=== PATIENT | female | born 1940 | race African-American/Black ===

== ENCOUNTER 2016-10-05 23:04 | Inpatient (IN) | payer MEDICARE ==
[~2016-10-05] VITALS: Ht 165.1 cm; Wt 57.3 kg
[~2016-10-05 23:04] MED LIST: ALLO100T PO; ASPI81TA82 PO; COZA50TA PO; CYAN1000P SQ; FURO1TAB93 PO; LABE100T2 PO; VITA500T83 PO; VITD400 PO; [UNRECOGNIZED DRUG - CODE] SQ
[2016-10-05 23:08] VITALS: PULSE 78; RESP 16; TEMP 98.2; O2SAT 99
[2016-10-05 23:17] VITALS: BP 241/112; PULSE 78; RESP 16; TEMP 98.2; O2SAT 99
--- NOTE | 2016-10-05 23:18 | PD ---
HPI Chief Complaint: Neuro Symptoms/ Deficits Time Seen by Provider: 23:18 Travel History International Travel<30 days: No Contact w/Intl Traveler<30days: No Traveled to known affect area: No History of Present Illness HPI 75-year-old female arrives by EMS. At least 7 hours prior to arrival she developed weakness in the left hand as well as a left facial droop. Evidently the patient had a stroke a year earlier without residual deficit. In the ER the patient denies any pain. EMS reports blood pressure on scene was 220/130 with a blood glucose of 125 and a pulse in the 80s. 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 PFSH Past Medical History Anemia: Yes Arthritis: Yes Blood Disorders: No Heart Rhythm Problems: Yes Cancer: No Cardiovascular Problems: Yes (AORTIC ANEURYSM) Chemotherapy: No Diabetes: No Diminished Hearing: No Endocrine: Yes Gastrointestinal Disorders: Yes (GERD, ESOPAGEAL STRICTURE, CHOLELITHIASIS, ABD. PAIN) GERD: Yes Genitourinary: No Hepatitis: No Hiatal Hernia: Yes Hypertension: Yes Immune Disorder: No Medical other: Yes (ANEMIA,) Musculoskeletal: Yes (ARTHRITIS) Neurologic: No Psychiatric: No Reproductive: No Respiratory: No Immunizations Current: Yes Radiation Therapy: No Thyroid Disease: Yes (NODULAR) Tetanus Vaccination: Unknown Influenza Vaccination: Yes Menopausal: Yes Past Surgical History Abdominal Surgery: No AICD: No Body Medical Devices: NONE Cardiac Surgery: No Ear Surgery: No Endocrine Surgery: No Eye Surgery: No Genitourinary Surgery: No Gynecologic Surgery: Yes (C SECTIION, HYSTERECTOMY) Hysterectomy: Yes Joint Replacement: No Neurologic Surgery: No Oral Surgery: No Pacemaker: No Thoracic Surgery: No Other Surgery: Yes (HYSTERECTOMY 20 YRS AGO) Social History Alcohol Use: No Tobacco Use: No Substance Use: No Allergies-Medications (Allergen,Severity, Reaction): Coded Allergies: Hydrochlorothiazide (Unverified Allergy, Severe, Rash, 10/05/16) Lactose (Unverified Adverse Reaction, Severe, GAS, PAIN, 10/05/16) Reported Meds & Prescriptions Reported Meds & Active Scripts Active Reported Cozaar (Losartan Potassium) 50 Mg Tab 50 Mg PO DAILY Vitamin D-3 (Cholecalciferol) 400 Unit Tab 400 B-12 (Cyanocobalamin) 1,000 Mcg Subl 1,000 Mcg SL DAILY Aspirin 81 Mg Tabdr 81 Mg PO DAILY Vitamin C (Ascorbic Acid) 500 Mg Cap 500 Mg PO Allopurinol 100 Mg Tab 100 Mg PO DAILY Labetalol (Labetalol HCl) 100 Mg Tab 100 Mg PO DAILY Furosemide 40 Mg Tab 40 Mg PO DAILY Procrit Inj (Epoetin Jay Jay) 10,000 Unit/Ml Inj 10,000 Units SQ 3XWEEK Review of Systems Except as stated in HPI: all other systems reviewed are Neg Physical Exam Narrative GENERAL: 75-year-old female pleasant well-nourished well-developed SKIN: Warm and dry. HEAD: Atraumatic. Normocephalic. EYES: Pupils equal and round. No scleral icterus. No injection or drainage. ENT: No nasal bleeding or discharge. Mucous membranes pink and moist. NECK: Trachea midline. No JVD. CARDIOVASCULAR: Regular rate and rhythm. No murmur appreciated. RESPIRATORY: No accessory muscle use. Clear to auscultation. Breath sounds equal bilaterally. GASTROINTESTINAL: Abdomen soft, non-tender, nondistended. Hepatic and splenic margins not palpable. MUSCULOSKELETAL: No obvious deformities. No clubbing. No cyanosis. No edema. NEUROLOGICAL: There is a depression of the nasolabial fold in the left side. There is a pronator drift on the left side. Handgrip on the left side is weaker compared to the right. Hip flexion is equal bilaterally. Speech memory mentation are preserved/normal. PSYCHIATRIC: Appropriate mood and affect; insight and judgment normal. Data Data Last Documented VS Vital Signs Date Time Temp Pulse Resp B/P Pulse Ox O2 Delivery O2 Flow Rate FiO2 10/06/16 00:15 180/71 10/05/16 23:59 84 16 100 Room Air 10/05/16 23:17 98.2 Orders Electrocardiogram (10/05/16 23:19) Prothrombin Time / Inr (Pt) (10/05/16 23:19) Act Partial Throm Time (Ptt) (10/05/16 23:19) Complete Blood Count With Diff (10/05/16 23:19) Basic Metabolic Panel (Bmp) (10/05/16 23:19) Creatine Kinase (Cpk) (10/05/16 23:19) Drug Screen, Random Urine (10/05/16 23:19) Troponin I (10/05/16 23:19) Urinalysis - C+S If Indicated (10/05/16 23:19) Ct Brain W/O Iv Contrast(Rout) (10/05/16 23:19) Chest, Single Ap (10/05/16 23:19) Ecg Monitoring (10/05/16 23:19) Iv Access Insert/Monitor (10/05/16 23:19) Oximetry (10/05/16 23:19) Cath For Specimen (10/05/16 23:19) Blood Glucose (10/05/16 23:19) Sodium Chloride 0.9% Flush (Ns Flush) (10/05/16 23:30) Nicardipine Inj (Cardene Inj) (10/05/16 23:30) CKMB (10/05/16 23:25) CKMB% (10/05/16 23:25) Clopidogrel (Plavix) (10/06/16 00:30) Admit Order (Ed Use Only) (10/06/16 00:30) Consult Neurology (10/06/16 ) Labs Laboratory Tests Test 10/05/16 23:25 Prothrombin Time 12.0 SEC Prothromb Time International 1.1 RATIO Ratio Activated Partial 26.8 SEC Thromboplast Time White Blood Count 8.0 TH/MM3 Red Blood Count 2.95 MIL/MM3 Hemoglobin 8.9 GM/DL Hematocrit 27.4 % Mean Corpuscular Volume 93.0 FL Mean Corpuscular Hemoglobin 30.1 PG Mean Corpuscular Hemoglobin 32.4 % Concent Red Cell Distribution Width 15.3 % Platelet Count 227 TH/MM3 Mean Platelet Volume 8.7 FL Neutrophils (%) (Auto) 67.4 % Lymphocytes (%) (Auto) 22.1 % Monocytes (%) (Auto) 7.1 % Eosinophils (%) (Auto) 2.5 % Basophils (%) (Auto) 0.9 % Neutrophils # (Auto) 5.4 TH/MM3 Lymphocytes # (Auto) 1.8 TH/MM3 Monocytes # (Auto) 0.6 TH/MM3 Eosinophils # (Auto) 0.2 TH/MM3 Basophils # (Auto) 0.1 TH/MM3 CBC Comment DIFF FINAL Differential Comment Sodium Level 140 MEQ/L Potassium Level 4.2 MEQ/L Chloride Level 113 MEQ/L Carbon Dioxide Level 11.6 MEQ/L Anion Gap 15 MEQ/L Blood Urea Nitrogen 117 MG/DL Creatinine 5.93 MG/DL Estimat Glomerular Filtration 8 ML/MIN Rate Random Glucose 134 MG/DL Calcium Level 8.5 MG/DL Total Creatine Kinase 256 U/L Creatine Kinase MB 5.8 NG/ML Creatine Kinase MB % 2.3 % Troponin I 0.04 NG/ML MDM Medical Decision Making Medical Screen Exam Complete: Yes Emergency Medical Condition: Yes Medical Record Reviewed: Yes Differential Diagnosis Hypertensive encephalopathy, stroke, TIA, electrolyte imbalance, spinal cord injury, Plummer's palsy Narrative Course CBC & BMP Diagram 10/05/16 23:25 EKG reveals a sinus rhythm with ventricular hypertrophy QT interval corrected is 461 rate is 76 Last [address] 10/05/169 Signed Impressions: Service Date/Time: Wednesday, October 05, 2016 23:37 - CONCLUSION: 1. No evidence of acute intracranial pathology. Chronic ischemic changes as above. old right occipital lobe infarct Delta Watt MD Chest X-Ray 10/05/162318 Signed Impressions: Service Date/Time: Wednesday, October 05, 2016 23:33 - CONCLUSION: 1. Delta Watt MD Chest x-ray shows cardiomegaly with no dense consolidation or sign of CHF The patient will be admitted for workup of what appears to be a stroke. Patient has been somewhat objectionable to our interventions here including Edward ramos. D/w Dr Mckeon for [facility]. Critical Care Narrative Aggregate critical care time was 45 minutes. Time to perform other separately billable procedures was not included in the critical care time. My time did not include minutes spent treating any other patients simultaneously or on activities that did not directly contribute to the patient's treatment. The services I provided to this patient were to treat and/or prevent clinically significant deterioration that could result in: intracranial hemorrhage, permanent disability I provided critical care services requiring my management, as noted below: Chart data review, documentation time, medication orders and management, vital sign assessments/reviewing monitor data, ordering and reviewing lab tests, ordering and interpreting/reviewing x-rays and diagnostic studies, care of the patient and discussion of the patient with the admitting physicians. Diagnosis Primary Impression: Hypertensive encephalopathy syndrome Additional Impressions: Stroke Qualified Code: I63.9 - Cerebrovascular accident (CVA), unspecified mechanism Renal failure (ARF), acute on chronic Admitting Information Admitting Physician Requests: Admit Brent Cuevas MD Oct 05, 2016 23:18
[2016-10-05] MEDS ORDERED: SODIUM CHLORIDE 0.9% FLUSH 5 ML FLUSH IVF PRN (23:30)
[2016-10-05 23:34] VITALS: RESP 16; O2SAT 99
--- NOTE | 2016-10-05 23:38 | RADRPT ---
EXAM DATE/TIME: 10/05/2016 23:33 [facility] COMPARISON: CHEST SINGLE AP, March 08, 2015, 3:37. INDICATIONS : Shortness of breath. MEDICAL HISTORY : None. SURGICAL HISTORY : None. ENCOUNTER: Initial ACUITY: 1 day PAIN SCORE: 0/10 LOCATION: Bilateral chest FINDINGS: The cardiac silhouette is enlarged in transverse diameter. The lungs are free of acute parenchymal op acity. No effusions are identified. There is prominence of the aortic knob is with calcification emmie acteristic of atherosclerotic vascular disease. CONCLUSION: 1. Delta Watt MD on October 05, 2016 at 23:37 Board Certified Radiologist. This report was verified electronically.
[2016-10-05 23:42] LABS: AUTOMATED NEUTROPHIL # 5.4 TH/MM3 (1.8-7.7); BASOPHIL # 0.1 TH/MM3 (0-0.2); BASOPHIL % 0.9 % (0.0-2.0); EOSINOPHIL # 0.2 TH/MM3 (0-0.4); EOSINOPHIL % 2.5 % (0.0-4.0); HEMATOCRIT 27.4 % (35.0-46.0); HEMO FLAGS DIFF FINAL; LYMPH % 22.1 % (9.0-44.0); LYMPHOCYTE # 1.8 TH/MM3 (1.0-4.8); MEAN CORPUSCULAR HEMOGLOBIN 30.1 PG (27.0-34.0); MEAN CORPUSCULAR HGB CONC 32.4 % (32.0-36.0); MONO % 7.1 % (0.0-8.0); NEUT % 67.4 % (16.0-70.0); PLATELET COUNT 227 TH/MM3 (150-450); RED BLOOD COUNT 2.95 MIL/MM3 (4.00-5.30); RED CELL DISTRIBUTION WIDTH 15.3 % (11.6-17.2)
[2016-10-05] MEDS: niCARdipine INJ 25 MG in SODIUM CHLOR 0.9% 250 ML INJ 250 ML IV SCH (23:45)
[2016-10-05 23:50] LABS: APTT (PATIENT) 26.8 SEC (24.3-30.1); INTERNATIONAL NORMALIZED RATIO 1.1 RATIO
[2016-10-05 23:59] VITALS: BP 215/144; PULSE 84; RESP 16; O2SAT 100
[2016-10-05 23:59] LABS: BICARBONATE 11.6 MEQ/L (21.0-32.0); POTASSIUM 4.2 MEQ/L (3.5-5.1)
[2016-10-06] VITALS (24 sets, daily range): BP systolic 148–212; BP diastolic 65–103; PULSE 71–87; RESP 16–30; TEMP 98.3–98.5; O2SAT 96–100
--- NOTE | 2016-10-06 00:10 | RADRPT ---
EXAM DATE/TIME: 10/05/2016 23:37 [facility] COMPARISON: No previous studies available for comparison. INDICATIONS : Left facial droop, left upper extremity weakness and slurred spech x 7 hrs RADIATION DOSE: 45.50 CTDIvol (mGy) MEDICAL HISTORY : Hypertension. Aneurysm, abdominal. Cardiovascular disease SURGICAL HISTORY : None. ENCOUNTER: Initial ACUITY: 1 day PAIN SCALE: 0/10 LOCATION: Bilateral cranial TECHNIQUE: Multiple contiguous axial images were obtained of the head. Using automated exposure control and adj ustment of the mA and/or kV according to patient size, radiation dose was kept as low as reasonably a chievable to obtain optimal diagnostic quality images. FINDINGS: Noncontrast axial head CT demonstrates the ventricles to be normal in size and configuration with a n ormal sulcal pattern. No acute intracranial hemorrhage, acute cortical infarction, mass or midline sh ift is seen. There is old right occipital infarct with ex vacuo dilatation of the occipital horn. Mac ro CT scan severe. Posterior fossa structures are unremarkable. Bone windows are unremarkable. CONCLUSION: 1. No evidence of acute intracranial pathology. Chronic ischemic changes as above. old right occipit al lobe infarct Delta Watt MD on October 06, 2016 at 0:07 Board Certified Radiologist. This report was verified electronically.
[2016-10-06 00:15] LABS: CKMB 5.8 NG/ML (0.5-3.6)
[2016-10-06] MEDS ORDERED: CLOPIDOGREL 75 MG TAB PO ONE (00:30)
[2016-10-06] MEDS ORDERED: PROC10003 SQ (01:09)
[2016-10-06] MEDS ORDERED: FURO40TA PO (01:09)
[2016-10-06] MEDS ORDERED: COZA50TA PO (01:09)
[2016-10-06] MEDS ORDERED: CYAN100025 SL (01:09)
[2016-10-06] MEDS ORDERED: LABE100T2 PO (01:09)
[2016-10-06] MEDS ORDERED: ASPI1TAB69 PO (01:09)
[2016-10-06] MEDS ORDERED: ASCO500C PO (01:09)
[2016-10-06] MEDS ORDERED: VITA400T (01:09)
[2016-10-06] MEDS ORDERED: ALLO100T PO (01:09)
[2016-10-06] MEDS: niCARdipine INJ 25 MG in SODIUM CHLOR 0.9% 250 ML INJ 250 ML IV SCH (07:58)
--- NOTE | 2016-10-06 08:39 | PD.CONS ---
History of Present Illness Service Neurology Consult Requested By er Reason for Consult stroke Primary Care Physician Florentin Mao Jr, MD History of Present Illness 75 year old female admitted for possible new stroke. hx of previous stroke. chronic uncontrolled bp and ckd. 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 out of tpa window. on aspirin. denies any headache, poor hx. bp 241/[address] brain old rt occipital stroke Review of Systems ROS Limitations: as above and admit hp Past Family Social History Allergies: Coded Allergies: Hydrochlorothiazide (Unverified Allergy, Severe, Rash, 03/07/15) Lactose (Unverified Adverse Reaction, Severe, GAS, PAIN, 03/07/15) Past Medical History Hypertension poorly controlled Chronic kidney disease creatinine was 2.4 in 2014 Arthritis Atherosclerotic disease of the aorta Past Surgical History Hysterectomy Reported Medications Flonase (Fluticasone Propionate) 0.05 % Naspr 1 Spr NA DAILY PRN Labetalol Hcl (Labetalol HCl) 200 Mg Tab 200 Mg PO DAILY Losartan Potassium 50 MG (Losartan Potassium) 50 Mg Tab 50 Mg PO BID Baby aspirin Active Ordered Medications Reviewed Family History Noncontributory Social History Did not smoke or use alcohol Review of Systems All other ROS: ROS reviewed as documented in chart Past Family Social History Allergies: Coded Allergies: Hydrochlorothiazide (Unverified Allergy, Severe, Rash, 10/05/16) Lactose (Unverified Adverse Reaction, Severe, GAS, PAIN, 10/05/16) Active Ordered Medications Current Medications Medications (Trade) Dose Ordered Sig/Khanh Route Start Time Stop Time Status Last Admin IV Flush 2 ml 2 ml UNSCH PRN IVF 10/05/16 23:30 (Cardene Inj/NS 250 ml Inj) 260 ml @ 0 mls/hr TITRATE IV 10/05/16 23:30 10/06/16 07:58 (Aspirin Chew) 81 mg DAILY PO 10/06/16 09:00 (Plavix) 75 mg DAILY PO 10/06/16 09:00 Exam I&O / VS Vital Signs Date Time Temp Pulse Resp B/P Pulse Ox O2 Delivery O2 Flow Rate FiO2 10/06/16 08:01 78 16 204/87 100 Room Air 10/06/16 07:45 73 16 212/97 100 Room Air 10/06/16 06:55 79 148/91 10/06/16 06:10 79 175/84 2/14/17 03:58 86 16 153/80 98 Room Air 10/06/16 03:30 182/80 10/06/16 03:02 82 16 158/65 98 Room Air 10/06/16 02:54 86 16 170/78 98 Room Air 10/06/16 02:35 188/78 10/06/16 02:00 198/88 10/06/16 01:53 167/90 10/06/16 01:39 85 16 185/73 99 Room Air 10/06/16 01:28 87 16 201/103 99 Room Air 10/06/16 00:15 180/71 10/06/16 00:10 190/88 10/05/16 23:59 84 16 215/144 100 Room Air 10/05/16 23:34 16 99 Room Air 10/05/16 23:17 98.2 78 16 241/112 99 Room Air 10/05/16 23:13 78 16 99 Room Air 10/05/16 23:08 98.2 78 16 99 General: Alert and Oriented, No acute distress Eye: EOMI Respiratory: Non-labored respirations Cardiology: Normal rate Neurologic: Alert, Oriented Psychiatric: Cooperative Exam Comments ox 2-3. follows, pcp: correct. reduced left vff, left lower facial weakness. no drift but reduced ffm in left hand. able to raise all 4 ext to gravity for >5 sec, gait not assessed 2/2 fall risk; reduced pin in left distal hand Review/Management Diagnosis/Plan: (1) Acute ischemic right MCA stroke Plan: probable new rt hemispheric lacunar infarct 2/2 severe, chronic htn vs htn encephalopathy related recs mri/mra brain/carotid/echo plavix p.t. lipids tele f/u exam (2) Chronic ischemic right KILNMAN stroke Plan: old rt occipital (3) Uncontrolled hypertension Plan: keep <200/100; further titration after imaging reviewed ok to restart bp meds (4) Chronic kidney disease (CKD) Problem Qualifiers (1) Chronic kidney disease (CKD): Qualified Code: N18.9 - Chronic kidney disease (CKD), unspecified stage Puneet Zepeda MD Oct 06, 2016 08:39
[2016-10-06] MEDS: CLOPIDOGREL 75 MG TAB PO SCH (09:00)
--- NOTE | 2016-10-06 09:34 | RADRPT ---
EXAM DATE/TIME: 10/06/2016 07:56 [facility] COMPARISON: No previous studies available for comparison. INDICATIONS : Cerebrovascular accident. MEDICAL HISTORY : Hypertension. Gastroesophageal reflux disease. Stroke. Heart rhythm problems. Aortic aneurysm. E sophogeal stricuture. Cholelithiasis. SURGICAL HISTORY : section. Hysterectomy. ENCOUNTER: Initial ACUITY: 1 day PAIN SCORE: 1/10 LOCATION: Bilateral neck PEAK SYSTOLIC VELOCITIES (cm/sec): ICA/CCA RATIO: Right: 1.6 Left: 1.6 ICA: Right: 61 Left: 83 CCA: Right: 39 Left: 52 ECA: Right: 77 Left: 52 VERTEBRAL: Right: 49 antegrade Left: 70 antegrade Elevated flow velocities and ICA/CCA ratios have been found to correlate with increased degrees of vessel stenosis, calculated as percentage of diameter relative to a normal segment of distal ICA/CCA FINDINGS: RIGHT CAROTID: There is calcified plaque in the distal common carotid artery and bulb which extends into the interna l and external carotid arteries. The waveforms are within normal limits. LEFT CAROTID: There is calcified plaque in the distal common carotid artery and bulb which extends into the interna l and external carotid arteries. The waveforms are within normal limits. VERTEBRAL ARTERIES: Antegrade flow is seen in both vertebral arteries. MISCELLANEOUS: None. CONCLUSION: 1. Mild to moderate bilateral calcific plaquing with less than 50% diameter stenosis by velocity crit eria in both internal carotid arteries. 2. Antegrade flow in both vertebral arteries. Binh Jones MD on October 06, 2016 at 9:32 Board Certified Radiologist. This report was verified electronically.
[2016-10-06] MEDS: ASPIRIN 81 MG CHEW TAB PO SCH ×2 (10:37→13:31)
[2016-10-06] MEDS: HEPARIN SODIUM - SQ 10,000 UNITS/ML VIAL SQ SCH ×2 (10:38→22:08)
--- NOTE | 2016-10-06 11:22 | EKG ---
Date Performed: 10/05/2016 Time Performed: 23:15:38 PTAGE: 75 years EKG: Sinus rhythm LEFT VENTRICULAR HYPERTROPHY NONSPECIFIC ST-T WAVE CHANGES NO MAJOR CHANGE SUSPECTED FROM THE PRIOR TRACING ABNORMAL ECG PREVIOUS TRACING : 03/07/2015 10.28 DOCTOR: Alvaro Gant Interpretating Date/Time 10/06/2016 11:21:51
--- NOTE | 2016-10-06 12:16 | HHI.HP ---
HPI Service [facility] Hospitalists Primary Care Physician Florentin Mao Jr, MD Admission Diagnosis CVA, Acute on CRI, Hypertension Chief Complaint: Left hand weakness and left facial droop Travel History International Travel<30 Days: No Contact w/Intl Traveler <30 Da: No Traveled to Known Affected Are: No History of Present Illness Mrs. Gallagher is a pleasant 75 y/o AAF with uncontrolled HTN, CKD, stage 5, anemia of chronic disease on Procrit injections, and previous right MCA stroke in 02/2016. Pt arrived to the ED by EMS on 10/05/16 with complaints of left hand weakness and left facial droop which reportedly was first noted at least 7 hours prior to arrival. EMS reported her blood pressure on scene was 220/130 with a blood glucose of 125 and a pulse in the 80s. 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 Head CT did not revealed any evidence of acute intracranial pathology, only chronic ischemic changes and old right occipital lobe infarct. Pt has been evaluated by Neurology. MRI/MRA are pending. Carotid US noted mild to moderate bilateral calcific plaquing with less than 50% diameter stenosis by velocity criteria in both internal carotid arteries and antegrade flow in both vertebral arteries. Review of Systems Constitutional: DENIES: Fever, Chills Eyes: DENIES: Vision loss Ears, nose, mouth, throat: DENIES: Hearing loss Respiratory: DENIES: Cough, Shortness of breath Cardiovascular: DENIES: Chest pain, Palpitations, Lower Extremity Edema Gastrointestinal: DENIES: Abdominal pain, Nausea, Vomiting Genitourinary: DENIES: Urinary incontinence, Dysuria Musculoskeletal: DENIES: Back pain, Neck pain Integumentary: DENIES: Rash Hematologic/lymphatic: DENIES: Bruising Neurologic: COMPLAINS OF: Localized weakness, DENIES: Headache, Paresthesias, Poor Balance Psychiatric: DENIES: Confusion Past Family Social History Past Medical History Uncontrolled Hypertension Might sided MCA stroke in 02/2016 CKD, stage 5/ESRD creatinine was 5.27 in 07/2016, refused dialysis in the past, follows at [facility] with Dr. Luis Alfredo Ellis Anemia of chronic disease Hyperlipidemia Arthritis CAD/Hx of MS Pulmonary HTN 2D echo (03/15/16) - Mild LVH - Estimated EF 55-60% - LA is dilated - Mild mitral regurgitation - Mild to moderate tricuspid regurgitation - RSVP 47mmHg Past Surgical History Hysterectomy Thyroid biopsy in 2009 which was negative. Reported Medications -Aspirin 81 Mg PO DAILY -Furosemide 40 Mg PO DAILY -Procrit Inj 10,000 Units SQ 3XWEEK --Labetalol 100 Mg PO BID --Cozaar 100 Mg PO DAILY --Plavix 75mg PO DAILY --Atorvastatin 20mg QHS ?Norvasc 10mg PO DAILY ?Protonix 40mg PO DAILY ?Chlorthalidone 50mg PO DAILY Vitamin D-3 400 Unit Tab po DAILY B-12 1,000 Mcg SL DAILY Vitamin C 500 Mg PO DAILY Allergies: Coded Allergies: Hydrochlorothiazide (Unverified Allergy, Severe, Rash, 10/05/16) Lactose (Unverified Adverse Reaction, Severe, GAS, PAIN, 10/05/16) Family History Family hx of ESRD, HTN, and DM Social History Denies any alcohol, tobacco or illicit drug use Physical Exam Vital Signs Vital Signs Date Time Temp Pulse Resp B/P Pulse Ox O2 Delivery O2 Flow Rate FiO2 10/06/16 10:30 75 18 165/72 99 Room Air 10/06/16 09:16 71 18 167/79 99 10/06/16 08:01 78 16 204/87 100 Room Air 10/06/16 07:45 73 16 212/97 100 Room Air 10/06/16 06:55 79 148/91 10/06/16 06:10 79 175/84 10/06/16 03:58 86 16 153/80 98 Room Air 10/06/16 03:30 182/80 10/06/16 03:02 82 16 158/65 98 Room Air 10/06/16 02:54 86 16 170/78 98 Room Air 10/06/16 02:35 188/78 10/06/16 02:00 198/88 10/06/16 01:53 167/90 10/06/16 01:39 85 16 185/73 99 Room Air 10/06/16 01:28 87 16 201/103 99 Room Air 10/06/16 00:15 180/71 10/06/16 00:10 190/88 10/05/16 23:59 84 16 215/144 100 Room Air 10/05/16 23:34 16 99 Room Air 10/05/16 23:17 98.2 78 16 241/112 99 Room Air 10/05/16 23:13 78 16 99 Room Air 10/05/16 23:08 98.2 78 16 99 Physical Exam GENERAL: This is a well-nourished, well-developed patient, in no apparent distress. HEENT: Atraumatic. Normocephalic. No temporal or scalp tenderness. No scleral icterus. Airway patent. NECK: Trachea midline, supple, nontender. CARDIO: Regular. RESP: CTA bilaterally. No wheezes, rales, or rhonchi. ABD: +BS, soft, non-tender, nondistended. EXT: Extremities without clubbing, cyanosis, or edema. NEURO: Awake and alert. Left lower facial weakness. Normal speech. Laboratory Laboratory Tests Test 10/05/16 23:25 Prothrombin Time 12.0 Prothromb Time International 1.1 Ratio Activated Partial 26.8 Thromboplast Time White Blood Count 8.0 Red Blood Count 2.95 Hemoglobin 8.9 Hematocrit 27.4 Mean Corpuscular Volume 93.0 Mean Corpuscular Hemoglobin 30.1 Mean Corpuscular Hemoglobin 32.4 Concent Red Cell Distribution Width 15.3 Platelet Count 227 Mean Platelet Volume 8.7 Neutrophils (%) (Auto) 67.4 Lymphocytes (%) (Auto) 22.1 Monocytes (%) (Auto) 7.1 Eosinophils (%) (Auto) 2.5 Basophils (%) (Auto) 0.9 Neutrophils # (Auto) 5.4 Lymphocytes # (Auto) 1.8 Monocytes # (Auto) 0.6 Eosinophils # (Auto) 0.2 Basophils # (Auto) 0.1 CBC Comment DIFF FINAL Differential Comment Sodium Level 140 Potassium Level 4.2 Chloride Level 113 Carbon Dioxide Level 11.6 Anion Gap 15 Blood Urea Nitrogen 117 Creatinine 5.93 Estimat Glomerular Filtration 8 Rate Random Glucose 134 Calcium Level 8.5 Total Creatine Kinase 256 Creatine Kinase MB 5.8 Creatine Kinase MB % 2.3 Troponin I 0.04 Result Diagram: 10/05/16232410/05/162324 Imaging Last Impressions Carotid Artery Ultrasound 10/06/16 0900 Signed Impressions: Service Date/Time: Thursday, October 06, 2016 07:56 - CONCLUSION: 1. Mild to moderate bilateral calcific plaquing with less than 50%% diameter stenosis by velocity criteria in both internal carotid arteries. 2. Antegrade flow in both vertebral arteries. Binh Jones MD Head Magnetic Resonance Angiography 2/14/17 0000 Signed Impressions: Service Date/Time: Thursday, October 06, 2016 12:07 - CONCLUSION: No acute [place] vascular findings. Ming Landaverde MD Brain MRI 10/06/16 0000 Signed Impressions: Service Date/Time: Thursday, October 06, 2016 12:07 - CONCLUSION: 1. There is some patchy infarct seen in the postcentral gyral region on the right. This would be consistent with acute right MCA infarct. 2. There is old infarct involving the posterior watershed distribution on the right. 3. Advanced microvascular ischemic demyelinative change. Brent Tapia MD Head CT 10/05/162318 Signed Impressions: Service Date/Time: Wednesday, October 05, 2016 23:37 - CONCLUSION: 1. No evidence of acute intracranial pathology. Chronic ischemic changes as above. old right occipital lobe infarct Delta Watt MD Chest X-Ray 10/05/162318 Signed Impressions: Service Date/Time: Wednesday, October 05, 2016 23:33 - CONCLUSION: 1. Delta Watt MD Septic Shock Reassessment Heart: Regular rate and rhythm Lungs: Clear Skin: Warm Peripheral Pulses: Bounding Right Radial Bounding Left Radial Bounding Right Popliteal Bounding Left Popliteal Bounding Right Dorsalis Pedis Bounding Left Dorsalis Pedis Bounding Right Posterior Tibial Bounding Left Posterior Tibial Capillary Refill: <2 seconds Assessment and Plan Problem List: (1) Acute ischemic right MCA stroke Status: Acute Plan: - Pt was admitted to [facility] on 10/05/16 with complaints of left hand weakness and left facial droop which reportedly was first noted at least 7 hours prior to arrival. - EMS reported her blood pressure on scene was 220/130 with a blood glucose of 125 and a pulse in the 80s. 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 - Head CT (10/05) --> No evidence of acute intracranial pathology, only chronic ischemic changes and old right occipital lobe infarct. Pt has been evaluated by Neurology. - Carotid US (10/06) --> Mild to moderate bilateral calcific plaquing with less than 50% diameter stenosis by velocity criteria in both internal carotid arteries and antegrade flow in both vertebral arteries. - MRA Brain (10/06) --> No acute COW vascular findings. - Brain MRI (10/06) --> There is some patchy infarct seen in the postcentral gyral region on the right. This would be consistent with acute right MCA infarct. There is old infarct involving the posterior watershed distribution on the right. - 2D echo is pending. 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 - Outpt labs reviewed and pts renal function has steadily been in decline, her last BMP in 07/2016 noted Cr 5.27, BUN 80, GFR 8 - Consult Nephrology (4) Anemia, chronic renal failure Status: Chronic Plan: - In review of outpt records pts Hgb has been in the 8's more recently - No active bleeding. - Pt is on Procrit as an otupt. Assessment and Plan Patient examined. Assessment and plan formulated with Joann Venegas PA-C. I agree with the above. Physician Certification 2 Midnight Certification Type: Admission for Inpatient Services Order for Inpatient Services The services are ordered in accordance with Medicare regulations or non- Medicare payer requirements, as applicable. In the case of services not specified as inpatient-only, they are appropriately provided as inpatient services in accordance with the 2-midnight benchmark. Estimated LOS (days): 3 3 days is the estimated time the patient will need to remain in the hospital, assuming treatment plan goals are met and no additional complications. Post-Hospital Plan: Not yet determined Problem Qualifiers (1) Anemia, chronic renal failure: Qualified Code: N18.5 - Anemia, chronic renal failure, stage 5 Joann Venegas Oct 06, 2016 12:16 Gerhard Colon DO Oct 11, 2016 06:59
--- NOTE | 2016-10-06 12:53 | RADRPT ---
EXAM DATE/TIME: 10/06/2016 12:07 [facility] COMPARISON: MRI BRAIN W/O CONTRAST, October 06, 2016, 12:07. INDICATIONS : Left sided weakness. CVA. MEDICAL HISTORY : Gastroesophageal reflux disease. Aneurysm, abdominal. Arthritis. SURGICAL HISTORY : Hysterectomy. Abdominal aortic aneurysm repair. section. ENCOUNTER: Subsequent ACUITY: 1 day PAIN SCORE: 0/10 LOCATION: head. Please note a normal MRA of the brain does not entirely exclude the possibility of a small aneurysm, nor the possibility of distal intracranial vessel disease. TECHNIQUE: 3D time of flight MRA was performed. Source images, multiplanar STS MIP, and 3D volume MIP reconstru ctions were reviewed. FINDINGS: There is diminished relative flow-related enhancement and parenchymal branches of the right middle ce rebral artery. No evidence of proximal occlusion or stenosis. Contralateral left MCA vessels are unre markable. The A1 segment of right anterior cerebral artery is not seen and the A2 is azygous. The pos terior circulation is intact and unremarkable. There is no evidence of aneurysm or vascular malformat ion. CONCLUSION: No acute [place] vascular findings. Ming Landaverde MD on October 06, 2016 at 12:49 Board Certified Radiologist. This report was verified electronically.
[2016-10-06] MEDS ORDERED: niCARdipine INJ 25 MG in SODIUM CHLOR 0.9% 250 ML INJ 250 ML IV SCH (13:00)
--- NOTE | 2016-10-06 13:27 | RADRPT ---
EXAM DATE/TIME: 10/06/2016 12:07 [facility] COMPARISON: CT BRAIN W/O CONTRAST, October 05, 2016, 23:37. INDICATIONS : Left sided weakness. CVA. MEDICAL HISTORY : Gastroesophageal reflux disease. Aneurysm, abdominal. Arthritis. SURGICAL HISTORY : Hysterectomy. Abdominal aortic aneurysm repair. section. ENCOUNTER: Subsequent ACUITY: 1 day PAIN SCORE: 0/10 LOCATION: head. TECHNIQUE: Multiplanar, multisequence MRI of the brain was performed without contrast. FINDINGS: The diffusion restriction images demonstrate a subacute, old area of infarct involving the watershed distribution between the right posterior parietal and occipital cortex. There are however some puncta te areas of restricted diffusion signal seen in the white matter of the centrum semiovale and along t he postcentral gyrus on the right. These would be to system with acute areas of right MCA infarct. No findings to indicate acute intracranial hemorrhage are seen. The inversion recovery images demonstrate extensive T2 signal within the white matter consistent with moderate/advanced microvascular ischemic demyelinative change. No abnormal extra-axial fluid collections are seen. There is some mild colpocephalic dilation of the posterior horn of right lateral ventricle the ventricles are otherwise normal in appearance. No mass lesion is identified. The appearance of the posterior fossa is unremarkable. CONCLUSION: 1. There is some patchy infarct seen in the postcentral gyral region on the right. This would be cons istent with acute right MCA infarct. 2. There is old infarct involving the posterior watershed distribution on the right. 3. Advanced microvascular ischemic demyelinative change. Brent Tapia MD on October 06, 2016 at 13:23 Board Certified Radiologist. This report was verified electronically.
[2016-10-06] MEDS ORDERED: PILL SPLITTER OTHER PRN (15:00)
[2016-10-06] MEDS: LABETALOL HCL 100 MG TAB PO SCH ×2 (15:34→22:08)
--- NOTE | 2016-10-06 17:04 | EC ---
Study Study Date:10/06/2016 STUDY CONCLUSIONS SUMMARY - Left ventricle: The cavity size was normal. Wall thickness was increased in a pattern of mild LVH. There was concentric hypertrophy. Systolic function was normal. The estimated ejection fraction was in the range of 55% to 60%. Wall motion was normal; there were no regional wall motion abnormalities. Doppler parameters are consistent with abnormal left ventricular relaxation (grade 1 diastolic dysfunction). - Aortic valve: Trace regurgitation. - Mitral valve: Mildly calcified annulus. If LV function is below 40, please consider prescribing an ACEI or ARB or document rationale for non-use. PROCEDURE DATA STUDY STATUS: Elective. Procedure: Transthoracic echocardiography. Image quality was good. Scanning was performed from the parasternal, apical, and subcostal acoustic windows. Study completion: The patient tolerated the procedure well. Transthoracic echocardiography. M-mode, complete 2D, complete spectral Doppler, and color Doppler. Patient status: Inpatient. CARDIAC ANATOMY LEFT VENTRICLE: The cavity size was normal. Wall thickness was increased in a pattern of mild LVH. There was concentric hypertrophy. Systolic function was normal. The estimated ejection fraction was in the range of 55% to 60%. Wall motion was normal; there were no regional wall motion abnormalities. Doppler parameters are consistent with abnormal left ventricular relaxation (grade 1 diastolic dysfunction). AORTIC VALVE: Trileaflet; moderately thickened leaflets. Doppler: There was no stenosis. Trace regurgitation. Mean gradient: 6mm Hg (S). Peak gradient: 14mm Hg (S). MITRAL VALVE: Mildly calcified annulus. Doppler: There was no evidence for stenosis. Trace regurgitation. Mean gradient: 3mm Hg (D). Peak gradient: 10mm Hg (D). LEFT ATRIUM: The atrium was at the upper limits of normal in size. RIGHT VENTRICLE: The cavity size was normal. PULMONIC VALVE: Not well visualized. Doppler: There was no evidence for stenosis. No significant regurgitation. TRICUSPID VALVE: The valve appears to be grossly normal. Doppler: There was no evidence for stenosis. Trace to mild regurgitation. PERICARDIUM: There was no pericardial effusion. BASIC MEASUREMENTS ADULT Normal Left ventricle LV internal dimension, ED, chordal level, *41.4 mm 43-52 PLAX LV internal dimension, ES, chordal level, 32 mm 23-38 PLAX Fractional shortening, chordal level, PLAX *23 % >29 LV posterior wall thickness, ED 7.45 mm IVS/LVPW ratio, ED 1.27 <1.3 Ventricular septum Septal thickness, ED 9.47 mm Aortic valve Leaflet separation 16 mm 15-26 Left atrium Anterior-posterior dimension 39 mm Right ventricle RV internal dimension, ED, PLAX 19.3 mm 19-38 BASIC MEASUREMENTS ADULT Normal Aortic valve Leaflet separation 16 mm 15-26 Aorta Root diameter, ED 30 mm 20-37 DOPPLER MEASUREMENTS ADULT Normal Main pulmonary artery Pressure, S 16 mm Hg =30 Aortic valve Peak velocity, S 188 cm/s Mean velocity, S 109 cm/s VTI, S 43.5 cm Mean gradient, S 6 mm Hg Peak gradient, S 14 mm Hg Mitral valve Peak E-wave velocity 85.7 cm/s Peak A-wave velocity 157 cm/s Mean velocity, D 74.7 cm/s Mean gradient, D 3 mm Hg Peak gradient, D 10 mm Hg Peak E/A ratio 0.5 Maximal regurgitant velocity 456 cm/s Tricuspid valve Regurgitant peak velocity 169 cm/s Peak RV-RA gradient, S 11 mm Hg Maximal regurgitant velocity 169 cm/s Systemic veins Estimated CVP 5 mm Hg Right ventricle RV pressure, S 16 mm Hg <30 LEGEND: Mean values are shown as u=mean value. Asterisk (*) parson values outside specified normal range. Prepared and signed by Benjamin Cuevas [id number]
[2016-10-06] MEDS ORDERED: hydrALAZINE HCL 20 MG/ML VIAL ONE (18:25)
[2016-10-06] MEDS ORDERED: cloNIDine HCL 0.2 MG TAB PO PRN (18:45)
[2016-10-06] MEDS ORDERED: CHLORHEXIDINE GLUCONATE 2 % 1 PACK (2 CLOTHS)(extra cloths) TOP PRN (18:45)
[2016-10-06 21:51] LABS: HEMOGLOBIN A1a 1.4 %; HEMOGLOBIN A1b 0.9 %; HEMOGLOBIN Ao 80.2 %; HEMOGLOBIN LA1C 3.1 %; HEMOGLOBIN P3 7.9 %
[2016-10-06 22:25] LABS: HDL CHOLESTEROL 56.5 MG/DL (40.0-60.0); LDL CHOLESTEROL 137 MG/DL (0-99)
[2016-10-07] VITALS (13 sets, daily range): BP systolic 142–200; BP diastolic 67–95; PULSE 68–104; RESP 15–20; TEMP 97.4–98.6; O2SAT 100
[2016-10-07] MEDS: CHLORHEXIDINE GLUCONATE 2 % 1 PACK (2 CLOTHS)(taper/protocol) TOP SCH ×2 (04:00→20:40)
[2016-10-07] MEDS: HEPARIN SODIUM - SQ 10,000 UNITS/ML VIAL SQ SCH ×2 (09:00→20:40)
[2016-10-07] MEDS: LABETALOL HCL 100 MG TAB PO SCH ×2 (09:00→20:40)
[2016-10-07] MEDS: CLOPIDOGREL 75 MG TAB PO SCH (09:00)
--- NOTE | 2016-10-07 09:15 | HHI.PR ---
Review/Management Diagnosis/Plan: (1) Acute ischemic right MCA stroke Plan: severe htn severe ckd recs bp control; gradually bring down to normotensive range over the next week plavix p.t./s.t. 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 stroke Plan: old rt occipital (3) Uncontrolled hypertension Plan: keep <200/100; further titration after imaging reviewed ok to restart bp meds (4) Chronic kidney disease (CKD) Plan: medical/renal Subjective Subjective Comments No acute events reported No headache No chest pain No dyspnea Active Medications Current Medications Medications (Trade) Dose Ordered Sig/Khanh Route Start Time Stop Time Status Last Admin (NS Flush) 2 ml UNSCH PRN IVF 10/05/16 23:30 (Aspirin Chew) 81 mg DAILY PO 10/06/16 09:00 10/06/16 13:31 (Plavix) 75 mg DAILY PO 10/06/16 09:00 Heparin Sodium (Porcine) 5000 units 5,000 units BID SQ 10/06/16 09:00 10/06/16 22:08 (Cardene Inj/NS 250 ml Inj) 260 ml @ 0 mls/hr TITRATE IV 10/06/16 13:00 (Trandate) 50 mg Q12HR PO 10/06/16 15:00 10/06/16 22:08 (Pill Splitter) 1 ea UNSCH PRN OTHER 10/06/16 15:00 Miscellaneous Information Patient in critical care unit? Ass... [id number] XX 10/06/16 18:45 (Chlorhexidine 2% Cloth) 3 pack DAILY@04 TOP 10/07/16 04:00 10/11/16 04:01 10/07/16 04:00 (Chlorhexidine 2% Cloth) 3 pack UNSCH PRN TOP 10/06/16 18:45 10/11/16 18:42 (Catapres) 0.2 mg Q6H PRN PO 10/06/16 18:45 (Apresoline Inj) 10 mg Q6H PRN IV 10/06/16 18:45 Allergies Allergies Coded Allergies Hydrochlorothiazide (Unverified Allergy, Severe, Rash, 10/05/16) Lactose (Unverified Adverse Reaction, Severe, GAS, PAIN, 10/05/16) Review of Systems All other ROS: ROS reviewed as documented in chart Exam I&O / VS 10/06/16 10/06/16 10/07/16 15:00 23:00 07:00 Intake Total 255 ml 55 ml Output Total 850 ml 200 ml Balance -595 ml -145 ml Intake Oral 250 ml 50 ml IV Total 5 ml 5 ml Output Urine Total 850 ml 200 ml # Voids 4 2 Vital Signs Date Time Temp Pulse Resp B/P Pulse Ox O2 Delivery O2 Flow Rate FiO2 10/07/16 08:00 79 10/07/16 06:00 77 10/07/16 04:00 98.4 71 18 169/74 100 10/07/16 04:00 71 10/07/16 02:00 72 10/07/16 00:00 72 10/07/16 00:00 98.6 72 15 169/77 100 10/06/16 22:00 77 10/06/16 20:00 79 30 168/79 100 10/06/16 20:00 79 10/06/16 19:15 98.5 10/06/16 18:00 73 10/06/16 16:00 98.3 84 16 187/82 100 10/06/16 16:00 77 10/06/16 15:06 82 20 181/84 98 2 10/06/16 13:21 80 17 198/81 96 Room Air 10/06/16 10:30 75 18 165/72 99 Room Air 10/06/16 09:16 71 18 167/79 99 General: Alert and Oriented, No acute distress Eye: EOMI Respiratory: Non-labored respirations Cardiology: Normal rate Neurologic: Alert, Oriented Psychiatric: Cooperative Exam Comments ox 2-3. follows, pcp: correct. reduced left vff, left lower facial weakness. no drift but reduced ffm in left hand, mild left hemiparesis, gait not assessed 2/ 2 fall risk Objective Micro and Labs Laboratory Tests Test 10/06/16 10/06/16 16:15 21:15 Nasal Screen MRSA (PCR) NEGATIVE Erythrocyte Sedimentation Rate 41 Hemoglobin A1c 6.2 Triglycerides Level 108 Cholesterol Level 215 LDL Cholesterol 137 HDL Cholesterol 56.5 Cholesterol/HDL Ratio 3.80 Vitamin B12 Level GREATER THAN 2000 Thyroid Stimulating Hormone 3.040 3rd Gen Problem Qualifiers (1) Chronic kidney disease (CKD): Qualified Code: N18.9 - Chronic kidney disease (CKD), unspecified stage Puneet Zepeda MD Oct 07, 2016 09:15
[2016-10-07] MEDS: hydrALAZINE HCL 20 MG/ML VIAL IV PRN ×2 (09:59→19:02)
--- NOTE | 2016-10-07 14:20 | PD.CONS ---
HPI Service Nephrology Consult Requested By Reason for Consult Eval of CKD, GFR < 15 Primary Care Physician Florentin Mao Jr, MD History of Present Illness This is a 75 y/o AAF patient who was admitted on 10/05 with left sided weakness. She was diagnosed with new R MCA infarct, she has left arm paralysis, left leg weakness, and left sided facial droop with slurred speech, dysarthria. Other PMH of HTN, anemia, previous CVA. Her BP has been in 200s since arrival, previously on Nicardipine gtt that has since been discontinued. Her admission labs with Creatinine 5.93, C02 11.6, K 4.2, Hb 8.9. In 2013 her creatinine [id number] 2.29, GFR 22. The pt was diagnosed with advanced CKD at [facility], later followed up with Dr. Oliveros once or twice, then followed up at [facility] on one occasion. I was able to speak with the who states the pt had 2 sisters who were on dialysis that later . The pt was very adamant about the fact that she would never be on HD herself, and today reiterated that fact. She went to [facility] in hopes of finding "non dialysis treatment or a way to reverse" her kidney disease. They were told she only had one functioning kidney. A biopsy was not done. Today her K is normal, she does have metabolic acidosis without fluid overload. She is awake, does not illicit complaints. She is severely hypertensive today. We were consulted for renal management. 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 Luis Alfredo Ellis Anemia of chronic disease Hyperlipidemia Arthritis CAD/Hx of AL Pulmonary HTN 2D echo (03/15/16) - Mild LVH - Estimated EF 55-60% Past Surgical History Hysterectomy Thyroid biopsy in 2008 which was negative. Reported Medications Cozaar (Losartan Potassium) 50 Mg Tab 50 Mg PO DAILY Vitamin D-3 (Cholecalciferol) 400 Unit Tab 400 B-12 (Cyanocobalamin) 1,000 Mcg Subl 1,000 Mcg SL DAILY Aspirin 81 Mg Tabdr 81 Mg PO DAILY Vitamin C (Ascorbic Acid) 500 Mg Cap 500 Mg PO Allopurinol 100 Mg Tab 100 Mg PO DAILY Labetalol (Labetalol HCl) 100 Mg Tab 100 Mg PO DAILY Furosemide 40 Mg Tab 40 Mg PO DAILY Procrit Inj (Epoetin [place]) 10,000 Unit/Ml Inj 10,000 Units SQ 3XWEEK Active Ordered Medications Current Medications Medications (Trade) Dose Ordered Sig/Khanh Route Start Time Stop Time Status Last Admin (NS Flush) 2 ml UNSCH PRN IVF 10/05/16 23:30 (Aspirin Chew) 81 mg DAILY PO 10/06/16 09:00 10/06/16 13:31 (Plavix) 75 mg DAILY PO 10/06/16 09:00 10/07/16 09:00 Heparin Sodium (Porcine) 5000 units 5,000 units BID SQ 10/06/16 09:00 10/07/16 09:00 (Cardene Inj/NS 250 ml Inj) 260 ml @ 0 mls/hr TITRATE IV 10/06/16 13:00 (Trandate) 50 mg Q12HR PO 10/06/16 15:00 10/07/16 09:00 (Pill Splitter) 1 ea UNSCH PRN OTHER 10/06/16 15:00 Miscellaneous Information Patient in critical care unit? Ass... Q361D XX 10/06/16 18:45 (Chlorhexidine 2% Cloth) 3 pack DAILY@04 TOP 10/07/16 04:00 10/11/16 04:01 10/07/16 04:00 (Chlorhexidine 2% Cloth) 3 pack UNSCH PRN TOP 10/06/16 18:45 10/11/16 18:42 (Catapres) 0.2 mg Q6H PRN PO 10/06/16 18:45 10/07/16 09:59 (Apresoline Inj) 10 mg Q6H PRN IV 10/06/16 18:45 10/07/16 09:59 (Lipitor) 40 mg HS PO 10/07/16 21:00 Family History 2 sisters , they were on dialysis Social History , lives with no hx of smoking or ETOH needs assistance with ADLs full code retired (Omayra Munoz) Physical Exam Vital Signs Vital Signs Date Time Temp Pulse Resp B/P Pulse Ox O2 Delivery O2 Flow Rate FiO2 10/07/16 12:00 79 10/07/16 12:00 98.6 71 20 177/69 100 10/07/16 10:00 79 10/07/16 10:00 79 10/07/16 08:00 98.6 71 18 200/95 100 10/07/16 08:00 79 10/07/16 06:00 77 10/07/16 04:00 98.4 71 18 169/74 100 10/07/16 04:00 71 10/07/16 02:00 72 10/07/16 00:00 72 10/07/16 00:00 98.6 72 15 169/77 100 10/06/16 22:00 77 10/06/16 20:00 79 30 168/79 100 10/06/16 20:00 79 10/06/16 19:15 98.5 10/06/16 18:00 73 10/06/16 16:00 98.3 84 16 187/82 100 10/06/16 16:00 77 10/06/16 15:06 82 20 181/84 98 2 Physical Exam GENERAL: This is a well-nourished, well-developed AAF patient, awake, but in no apparent distress. HEENT: Atraumatic. Normocephalic. No temporal or scalp tenderness. No scleral icterus. Airway patent. NECK: Trachea midline, supple, nontender. CARDIO: Regular. Hypertensive, regular rhythm RESP: CTA bilaterally. No wheezes, rales, or rhonchi. diminished in bases ABD: +BS, soft, non-tender, nondistended. EXT: Extremities without clubbing, cyanosis, or edema. Left leg 2/5 strength, left arm flaccid NEURO: Awake and alert. Left lower facial weakness. dysarthria, no aphasia; some drooling Laboratory Laboratory Tests Test 10/06/16 10/06/16 16:15 21:15 Nasal Screen MRSA (PCR) NEGATIVE Erythrocyte Sedimentation Rate 41 Hemoglobin A1c 6.2 Triglycerides Level 108 Cholesterol Level 215 LDL Cholesterol 137 HDL Cholesterol 56.5 Cholesterol/HDL Ratio 3.80 Vitamin B12 Level GREATER THAN 2000 Thyroid Stimulating Hormone 3.040 3rd Gen (Omayra Munoz) Result Diagram: 10/05/16232410/05/16 2325 Imaging Last Impressions Carotid Artery Ultrasound 10/06/16 0900 Signed Impressions: Service Date/Time: Thursday, October 06, 2016 07:56 - CONCLUSION: 1. Mild to moderate bilateral calcific plaquing with less than 50%% diameter stenosis by velocity criteria in both internal carotid arteries. 2. Antegrade flow in both vertebral arteries. Binh Jones MD Head Magnetic Resonance Angiography 10/06/16 0000 Signed Impressions: Service Date/Time: Thursday, October 06, 2016 12:07 - CONCLUSION: No acute [place] vascular findings. Ming Landaverde MD Brain MRI 10/06/16 0000 Signed Impressions: Service Date/Time: Thursday, October 06, 2016 12:07 - CONCLUSION: 1. There is some patchy infarct seen in the postcentral gyral region on the right. This would be consistent with acute right MCA infarct. 2. There is old infarct involving the posterior watershed distribution on the right. 3. Advanced microvascular ischemic demyelinative change. Brent Tapia MD Head CT 10/05/162318 Signed Impressions: Service Date/Time: Wednesday, October 05, 2016 23:37 - CONCLUSION: 1. No evidence of acute intracranial pathology. Chronic ischemic changes as above. old right occipital lobe infarct Delta Watt MD Chest X-Ray 10/05/162318 Signed Impressions: Service Date/Time: Wednesday, October 05, 2016 23:33 - CONCLUSION: 1. Delta Watt MD (Omayra Munoz) Assessment and Plan Problem List: (1) CKD (chronic kidney disease) stage 5, GFR less than 15 ml/min Plan: She has advanced renal dysfunction, she meets criteria to initiate dialysis She had CKD 4 back in 2013, progressive renal decline since then spoke with pt and , she does not wish to begin HD at this time Today her K is acceptable, but does have metabolic acidosis she is making a fair amount of urine at this time, control BP per neurology recommendations check UA for analysis of infection, protein, beckham ordered for I/O measurement begin oral bicarbonate as he is able to take liquids/tablets monitor renal function and electrolyte, correct abnormalities renal panel in am avoid nephrotoxins tolerating oral fluids, no IVF required will be available in the room tomorrow to further discuss goals of care (2) Acute ischemic right MCA stroke Plan: neuro following, appreciate recommendations on Lipitor, ASA, Plavix (3) Hypertensive emergency Plan: neurology following, permissive hypertension nicardipine gtt stopped, she is on PRN hydralazine and clonidine (4) Anemia, chronic renal failure Plan: check iron profile repeat Hb in am (Omayra Munoz) Problem List: (1) CKD (chronic kidney disease) stage 5, GFR less than 15 ml/min Plan: She has advanced renal dysfunction, she meets criteria to initiate dialysis She had CKD 4 back in 2013, progressive renal decline since then spoke with pt and , she does not wish to begin HD at this time Today her K is acceptable, but does have metabolic acidosis she is making a fair amount of urine at this time, control BP per neurology recommendations check UA for analysis of infection, protein, beckham ordered for I/O measurement begin oral bicarbonate as he is able to take liquids/tablets monitor renal function and electrolyte, correct abnormalities renal panel in am avoid nephrotoxins tolerating oral fluids, no IVF required will be available in the room tomorrow to further discuss goals of care (2) Acute ischemic right MCA stroke Plan: neuro following, appreciate recommendations on Lipitor, ASA, Plavix (3) Hypertensive emergency Plan: neurology following, permissive hypertension nicardipine gtt stopped, she is on PRN hydralazine and clonidine (4) Anemia, chronic renal failure Plan: check iron profile repeat Hb in am Assessment and Plan patient was seen and examined. Discussed with Dr. Colon. Chart extensively reviewed. Discussed with patient's daughter over the phone. Patient has refused dialysis in the past. Patient's daughter and are aware that patient has reached ESRD and needs dialysis. However in view of her decision not to pursue dialysis, we will not proceed with catheter placement and renal replacement therapy. Start oral sodium bicarbonate. Continue supportive care. Avoid nephrotoxins. Prognosis poor. Hospice may be appropriate. (Sergey Barajas MD) Problem Qualifiers (1) Anemia, chronic renal failure: Qualified Code: N18.5 - Anemia, chronic renal failure, stage 5 Omayra Munoz Oct 07, 2016 14:19 Sergey Barajas MD Oct 07, 2016 22:16
[2016-10-07] MEDS: SODIUM BICARBONATE 650 MG TAB PO SCH ×2 (14:30→20:40)
--- NOTE | 2016-10-07 17:25 | HHI.PR ---
Subjective Remarks Pt with continued LUE and LLE weakness and left facial droop BP has continued to be significantly elevated Objective Vitals Vital Signs Date Time Temp Pulse Resp B/P Pulse Ox O2 Delivery O2 Flow Rate FiO2 10/07/16 16:00 98.4 68 20 183/80 100 10/07/16 16:00 81 10/07/16 14:00 81 10/07/16 12:00 79 10/07/16 12:00 98.6 71 20 177/69 100 10/07/16 10:00 79 10/07/16 10:00 79 10/07/16 08:00 98.6 71 18 200/95 100 10/07/16 08:00 79 10/07/16 06:00 77 10/07/16 04:00 98.4 71 18 169/74 100 10/07/16 04:00 71 10/07/16 02:00 72 10/07/16 00:00 72 10/07/16 00:00 98.6 72 15 169/77 100 10/06/16 22:00 77 10/06/16 20:00 79 30 168/79 100 10/06/16 20:00 79 10/06/16 19:15 98.5 10/06/16 18:00 73 10/06/16 10/06/16 10/07/16 15:00 23:00 07:00 Intake Total 255 ml 55 ml Output Total 850 ml 200 ml Balance -595 ml -145 ml Intake Oral 250 ml 50 ml IV Total 5 ml 5 ml Output Urine Total 850 ml 200 ml # Voids 4 2 Result Diagram: 10/05/160 10/05/162324 Other Results Laboratory Tests Test 10/05/16 10/06/16 10/06/16 23:25 16:15 21:15 Prothrombin Time 12.0 SEC Prothromb Time International 1.1 RATIO Ratio Activated Partial 26.8 SEC Thromboplast Time White Blood Count 8.0 TH/MM3 Red Blood Count 2.95 MIL/MM3 Hemoglobin 8.9 GM/DL Hematocrit 27.4 % Mean Corpuscular Volume 93.0 FL Mean Corpuscular Hemoglobin 30.1 PG Mean Corpuscular Hemoglobin 32.4 % Concent Red Cell Distribution Width 15.3 % Platelet Count 227 TH/MM3 Mean Platelet Volume 8.7 FL Neutrophils (%) (Auto) 67.4 % Lymphocytes (%) (Auto) 22.1 % Monocytes (%) (Auto) 7.1 % Eosinophils (%) (Auto) 2.5 % Basophils (%) (Auto) 0.9 % Neutrophils # (Auto) 5.4 TH/MM3 Lymphocytes # (Auto) 1.8 TH/MM3 Monocytes # (Auto) 0.6 TH/MM3 Eosinophils # (Auto) 0.2 TH/MM3 Basophils # (Auto) 0.1 TH/MM3 CBC Comment DIFF FINAL Differential Comment Sodium Level 140 MEQ/L Potassium Level 4.2 MEQ/L Chloride Level 113 MEQ/L Carbon Dioxide Level 11.6 MEQ/L Anion Gap 15 MEQ/L Blood Urea Nitrogen 117 MG/DL Creatinine 5.93 MG/DL Estimat Glomerular Filtration 8 ML/MIN Rate Random Glucose 134 MG/DL Calcium Level 8.5 MG/DL Total Creatine Kinase 256 U/L Creatine Kinase MB 5.8 NG/ML Creatine Kinase MB % 2.3 % Troponin I 0.04 NG/ML Nasal Screen MRSA (PCR) NEGATIVE Erythrocyte Sedimentation Rate 41 mm/hr Hemoglobin A1c 6.2 % Triglycerides Level 108 MG/DL Cholesterol Level 215 MG/DL LDL Cholesterol 137 MG/DL HDL Cholesterol 56.5 MG/DL Cholesterol/HDL Ratio 3.80 RATIO Vitamin B12 Level GREATER THAN 2000 PG/ML Thyroid Stimulating Hormone 3.040 uIU/ML 3rd Gen Imaging Last Impressions Carotid Artery Ultrasound 10/06/16 0900 Signed Impressions: Service Date/Time: Thursday, October 06, 2016 07:56 - CONCLUSION: 1. Mild to moderate bilateral calcific plaquing with less than 50%% diameter stenosis by velocity criteria in both internal carotid arteries. 2. Antegrade flow in both vertebral arteries. Binh Jones MD Head Magnetic Resonance Angiography 10/06/16 0000 Signed Impressions: Service Date/Time: Thursday, October 06, 2016 12:07 - CONCLUSION: No acute [place] vascular findings. Ming Landaverde MD Brain MRI 10/06/16 0000 Signed Impressions: Service Date/Time: Thursday, October 06, 2016 12:07 - CONCLUSION: 1. There is some patchy infarct seen in the postcentral gyral region on the right. This would be consistent with acute right MCA infarct. 2. There is old infarct involving the posterior watershed distribution on the right. 3. Advanced microvascular ischemic demyelinative change. Brent Tapia MD Head CT 10/05/162318 Signed Impressions: Service Date/Time: Wednesday, October 05, 2016 23:37 - CONCLUSION: 1. No evidence of acute intracranial pathology. Chronic ischemic changes as above. old right occipital lobe infarct Delta Watt MD Chest X-Ray 10/05/166 Signed Impressions: Service Date/Time: Wednesday, October 05, 2016 23:33 - CONCLUSION: 1. Delta Watt MD Objective Remarks General: NAD, AAOx3 Chest: CTA bilaterally Cardiac: Regular Abd: +BS, soft ND/NT Ext: Left upper and LE weakness Neuro: Dysarthria, lower left facial droop A/P Problem List: (1) Acute ischemic right MCA stroke Status: Acute Plan: - Pt was admitted to [facility] on 10/05/16 with complaints of left hand weakness and left facial droop which reportedly was first noted at least 7 hours prior to arrival. - EMS reported her blood pressure on scene was 220/130 with a blood glucose of 125 and a pulse in the 80s. - Initially the patient had no mri manager strength on the left side with marked improvement en route. - Head CT (10/05) --> No evidence of acute intracranial pathology, only chronic ischemic changes and old right occipital lobe infarct. Pt has been evaluated by Neurology. - Carotid US (10/06) --> Mild to moderate bilateral calcific plaquing with less than 50% diameter stenosis by velocity criteria in both internal carotid arteries and antegrade flow in both vertebral arteries. - MRA Brain (10/06) --> No acute COW vascular findings. - Brain MRI (10/06) --> There is some patchy infarct seen in the postcentral gyral region on the right. This would be consistent with acute right MCA infarct. There is old infarct involving the posterior watershed distribution on the right. - Permissive HTN but pt with significantly elevated/uncontrolled HTN and was on Cardene gtt with parameters to keep BP less than 200/100 - Cardene was weaned off after pt was resumed on Labetalol 50mg po BID but BP remains elevated elevated with systolic in the 160-200's most of the day today. We will increase the Labetalol to 100mg BID - 2D echo (10/06/16) --> Mild LVH, Estimated EF 55-60%, Grade 1 diastolic dysfunction, trace aortic regurgitation, mildly calcified mitral annulus - Hydralazine and Clonidine PRN - Telemetry - PT/OT/ST - Lipid panel reviewed, Lipitor 40mg po HS - ASA/Plavix - Neuro checks - Supportive care - DVT prophylaxis (2) Uncontrolled hypertension Status: Chronic Plan: - Pt with hx of uncontrolled HTN - See above. (3) CKD (chronic kidney disease) stage 5, GFR less than 15 ml/min Status: Chronic Plan: - Pt with stage 5 CKD, she had previously been recommended for HD but the pt had declined - She follows with a [facility]. - Outpt labs reviewed and pts renal function has steadily been in decline, her last BMP in 07/2016 noted Cr 5.27, BUN 80, GFR 8 - Appreciate Nephrology consult - Pt declines HD again - Repeat labs in AM (4) Anemia, chronic renal failure Status: Chronic Plan: - In review of outpt records pts Hgb has been in the 8's more recently - No active bleeding. - Pt is on Procrit as an otupt. - Repeat labs in AM Assessment and Plan Patient examined. Assessment and plan formulated with Joann Venegas PA-C. I agree with the above. Problem Qualifiers (1) Anemia, chronic renal failure: Qualified Code: N18.5 - Anemia, chronic renal failure, stage 5 Joann Venegas Oct 07, 2016 17:25 Gerhard Colon DO Oct 11, 2016 06:58
[2016-10-07] MEDS: ATORVASTATIN 40 MG TAB PO SCH (20:40)
[2016-10-08] VITALS (10 sets, daily range): BP systolic 131–188; BP diastolic 66–86; PULSE 87–106; RESP 15–22; TEMP 97.6–99.4; O2SAT 90–100
[2016-10-08 06:06] LABS: AUTOMATED NEUTROPHIL # 7.5 TH/MM3 (1.8-7.7); BASOPHIL # 0.1 TH/MM3 (0-0.2); BASOPHIL % 0.7 % (0.0-2.0); EOSINOPHIL % 0.2 % (0.0-4.0); HEMATOCRIT 25.9 % (35.0-46.0); HEMO FLAGS DIFF FINAL; LYMPH % 7.6 % (9.0-44.0); LYMPHOCYTE # 0.7 TH/MM3 (1.0-4.8); MEAN CELL VOLUME 90.8 FL (80.0-100.0); MEAN CORPUSCULAR HEMOGLOBIN 30.3 PG (27.0-34.0); MEAN CORPUSCULAR HGB CONC 33.4 % (32.0-36.0); MONO % 4.6 % (0.0-8.0); NEUT % 86.9 % (16.0-70.0); PLATELET COUNT 227 TH/MM3 (150-450); RED BLOOD COUNT 2.85 MIL/MM3 (4.00-5.30); RED CELL DISTRIBUTION WIDTH 15.4 % (11.6-17.2); WHITE BLOOD COUNT 8.6 TH/MM3 (4.0-11.0)
[2016-10-08 06:35] LABS: ANION GAP 16 MEQ/L (5-15); BLOOD UREA NITROGEN 122 MG/DL (7-18); CHLORIDE 120 MEQ/L (98-107); GLOMERULAR FILTRATION RATE 8 ML/MIN (>89); MAGNESIUM 1.8 MG/DL (1.5-2.5); POTASSIUM 4.3 MEQ/L (3.5-5.1); SODIUM (NA) 145 MEQ/L (136-145)
[2016-10-08 06:36] LABS: TRANSFERRIN IRON PROFILE 167 MG/DL (200-360)
--- NOTE | 2016-10-08 08:18 | HHI.NPPN ---
Subjective Interval History Obtunded, poorly responsive. She is uremic. Objective Data Data 10/07/16 10/08/16 19:00 07:00 Intake Total 580 ml 310 ml Output Total 200 ml Balance 580 ml 110 ml Intake Oral 300 ml 300 ml IV Total 280 ml 10 ml Output Urine Total 200 ml # Voids 3 Vital Signs Date Time Temp Pulse Resp B/P Pulse Ox O2 Delivery O2 Flow Rate FiO2 10/08/16 06:00 87 10/08/16 04:00 97.6 87 15 142/67 100 10/08/16 04:00 94 10/08/16 02:00 96 10/08/16 00:00 97.8 100 15 139/66 100 10/08/16 00:00 100 10/07/16 22:00 102 10/07/16 20:45 97.4 104 18 142/67 100 10/07/16 20:00 104 10/07/16 18:00 81 10/07/16 16:00 98.4 68 20 183/80 100 10/07/16 16:00 81 10/07/16 14:00 81 10/07/16 12:00 79 10/07/16 12:00 98.6 71 20 177/69 100 10/07/16 10:00 79 10/07/16 10:00 79 -: 10/08/16 0503 10/08/16 0503 Physical Exam General Appearance: Malnourished Appearance Remarks frail Eyes Eye Exam: Pupils Equal Neck Neck Exam: Neck Supple Pulmonary Resp Exam: Clear Bilaterally Cardiology CV Exam: Regular Gastrointestinal/Abdomen GI Exam: Soft Musculoskeletal MS Exam: Joints Intact Extremeties Extremities Exam: No Edema Neurologic Neuro Exam: Obtunded Neuro Remarks left sided weakness. Assessment/Plan Problem List: (1) CKD (chronic kidney disease) stage 5, GFR less than 15 ml/min Plan: Patient has reached ESRD, she is uremic, needs renal replacement therapy. However, patient had expressed a wish not to undergo dialysis. Patient's family endorses this decision of hers. At this time her prognosis is very poor. She should be considered for hospice. (2) Acute ischemic right MCA stroke Plan: neuro following, appreciate recommendations on Lipitor, ASA, Plavix (3) Hypertensive emergency Plan: neurology following, permissive hypertension nicardipine gtt stopped, she is on PRN hydralazine and clonidine (4) Anemia, chronic renal failure Plan: check iron profile repeat Hb in am Plan Very little to add. Poor prognosis. Problem Qualifiers (1) Anemia, chronic renal failure: Qualified Code: N18.5 - Anemia, chronic renal failure, stage 5 Sergey Barajas MD Oct 08, 2016 08:18
--- NOTE | 2016-10-08 08:58 | HHI.PR ---
Review/Management Diagnosis/Plan: (1) Acute ischemic right MCA stroke Plan: severe htn severe ckd recs bp control; gradually bring down to normotensive range over the next week plavix p.t./s.t. lipids tele ok for 5th floor tele [facility] from neuro f/u exam (2) Chronic ischemic right UPHOLSTERY TECH stroke Plan: old rt occipital (3) Uncontrolled hypertension Plan: keep <200/100; further titration after imaging reviewed ok to restart bp meds (4) Chronic kidney disease (CKD) Plan: medical/renal Subjective Subjective Comments No acute events reported Active Medications Current Medications Medications (Trade) Dose Ordered Sig/Khanh Route Start Time Stop Time Status Last Admin (NS Flush) 2 ml UNSCH PRN IVF 10/05/16 23:30 (Aspirin Chew) 81 mg DAILY PO 10/06/16 09:00 10/06/16 13:31 (Plavix) 75 mg DAILY PO 10/06/16 09:00 10/07/16 09:00 Heparin Sodium (Porcine) 5000 units 5,000 units BID SQ 10/06/16 09:00 10/07/16 20:40 (Cardene Inj/NS 250 ml Inj) 260 ml @ 0 mls/hr TITRATE IV 10/06/16 13:00 (Pill Splitter) 1 ea UNSCH PRN OTHER 10/06/16 15:00 Miscellaneous Information Patient in critical care unit? Ass... Q361D XX 10/06/16 18:45 (Chlorhexidine 2% Cloth) 3 pack DAILY@04 TOP 10/07/16 04:00 10/11/16 04:01 10/07/16 20:40 (Chlorhexidine 2% Cloth) 3 pack UNSCH PRN TOP 10/06/16 18:45 10/11/16 18:42 (Catapres) 0.2 mg Q6H PRN PO 10/06/16 18:45 10/07/16 09:59 (Apresoline Inj) 10 mg Q6H PRN IV 10/06/16 18:45 10/07/16 19:02 (Lipitor) 40 mg HS PO 10/07/16 21:00 10/07/16 20:40 (Sodium Bicarbonate) 650 mg Q12HR PO 10/07/16 14:30 10/07/16 20:40 (Trandate) 100 mg Q12HR PO 10/07/16 21:00 10/07/16 20:40 Allergies Allergies Coded Allergies Hydrochlorothiazide (Unverified Allergy, Severe, Rash, 10/05/16) Lactose (Unverified Adverse Reaction, Severe, GAS, PAIN, 10/05/16) Review of Systems All other ROS: ROS reviewed as documented in chart Exam I&O / VS 10/07/16 10/07/16 10/08/16 15:00 23:00 07:00 Intake Total 580 ml 310 ml Output Total 200 ml Balance 580 ml 110 ml Intake Oral 300 ml 300 ml IV Total 280 ml 10 ml Output Urine Total 200 ml # Voids 3 Vital Signs Date Time Temp Pulse Resp B/P Pulse Ox O2 Delivery O2 Flow Rate FiO2 10/08/16 06:00 87 10/08/16 04:00 97.6 87 15 142/67 100 10/08/16 04:00 94 10/08/16 02:00 96 10/08/16 00:00 97.8 100 15 139/66 100 10/08/16 00:00 100 10/07/16 22:00 102 10/07/16 20:45 97.4 104 18 142/67 100 10/07/16 20:00 104 10/07/16 18:00 81 10/07/16 16:00 98.4 68 20 183/80 100 10/07/16 16:00 81 10/07/16 14:00 81 10/07/16 12:00 79 10/07/16 12:00 98.6 71 20 177/69 100 10/07/16 10:00 79 10/07/16 10:00 79 General: Alert and Oriented, No acute distress Eye: EOMI Respiratory: Non-labored respirations Cardiology: Normal rate Neurologic: Alert, Oriented Psychiatric: Cooperative Exam Comments ox 2-3. follows, pcp: correct. reduced left vff, left lower facial weakness. no drift but reduced ffm in left hand, mild left hemiparesis, gait not assessed 2/ 2 fall risk Objective Micro and Labs Laboratory Tests Test 10/08/16 10/08/16 05:00 05:03 Urine Random Creatinine 180 Urine Microalbumin/Creatinine 444 Ratio White Blood Count 8.6 Red Blood Count 2.85 Hemoglobin 8.6 Hematocrit 25.9 Mean Corpuscular Volume 90.8 Mean Corpuscular Hemoglobin 30.3 Mean Corpuscular Hemoglobin 33.4 Concent Red Cell Distribution Width 15.4 Platelet Count 227 Mean Platelet Volume 8.6 Neutrophils (%) (Auto) 86.9 Lymphocytes (%) (Auto) 7.6 Monocytes (%) (Auto) 4.6 Eosinophils (%) (Auto) 0.2 Basophils (%) (Auto) 0.7 Neutrophils # (Auto) 7.5 Lymphocytes # (Auto) 0.7 Monocytes # (Auto) 0.4 Eosinophils # (Auto) 0.0 Basophils # (Auto) 0.1 CBC Comment DIFF FINAL Differential Comment Sodium Level 145 Potassium Level 4.3 Chloride Level 120 Carbon Dioxide Level 9.0 Anion Gap 16 Blood Urea Nitrogen 122 Creatinine 6.48 Estimat Glomerular Filtration 8 Rate Random Glucose 104 Calcium Level 8.7 Phosphorus Level 6.5 Magnesium Level 1.8 Iron Level 40 Total Iron Binding Capacity 234 Percent Iron Saturation 17.1 Albumin 3.4 Problem Qualifiers (1) Chronic kidney disease (CKD): Qualified Code: N18.9 - Chronic kidney disease (CKD), unspecified stage Puneet Zepeda MD Oct 08, 2016 08:58
[2016-10-08] MEDS: CLOPIDOGREL 75 MG TAB PO SCH (09:00)
[2016-10-08] MEDS: LABETALOL HCL 100 MG TAB PO SCH ×2 (09:00→21:10)
[2016-10-08] MEDS: ASPIRIN 81 MG CHEW TAB PO SCH (09:00)
[2016-10-08] MEDS: SODIUM BICARBONATE 650 MG TAB PO SCH ×2 (09:00→21:00)
[2016-10-08] MEDS: HEPARIN SODIUM - SQ 10,000 UNITS/ML VIAL SQ SCH ×2 (09:05→21:10)
[2016-10-08] MEDS: hydrALAZINE HCL 20 MG/ML VIAL IV PRN (10:04)
--- NOTE | 2016-10-08 10:08 | HHI.PR ---
Subjective Remarks Pt awake but feeling weaker Pts BP was stable overnight. Family present at bedside this morning for meeting with Dr. Colon Objective Vitals Vital Signs Date Time Temp Pulse Resp B/P Pulse Ox O2 Delivery O2 Flow Rate FiO2 10/08/16 06:00 87 10/08/16 04:00 97.6 87 15 142/67 100 10/08/16 04:00 94 10/08/16 02:00 96 10/08/16 00:00 97.8 100 15 139/66 100 10/08/16 00:00 100 10/07/16 22:00 102 10/07/16 20:45 97.4 104 18 142/67 100 10/07/16 20:00 104 10/07/16 18:00 81 10/07/16 16:00 98.4 68 20 183/80 100 10/07/16 16:00 81 10/07/16 14:00 81 10/07/16 12:00 79 10/07/16 12:00 98.6 71 20 177/69 100 10/07/16 10/07/16 10/08/16 15:00 23:00 07:00 Intake Total 580 ml 310 ml Output Total 200 ml Balance 580 ml 110 ml Intake Oral 300 ml 300 ml IV Total 280 ml 10 ml Output Urine Total 200 ml # Voids 3 Result Diagram: 10/08/16 0503 10/08/16 0503 Other Results Laboratory Tests Test 10/06/16 10/06/16 10/08/16 10/08/16 16:15 21:15 05:00 05:03 Nasal Screen MRSA (PCR) NEGATIVE Erythrocyte Sedimentation Rate 41 mm/hr Hemoglobin A1c 6.2 % Triglycerides Level 108 MG/DL Cholesterol Level 215 MG/DL LDL Cholesterol 137 MG/DL HDL Cholesterol 56.5 MG/DL Cholesterol/HDL Ratio 3.80 RATIO Vitamin B12 Level GREATER THAN 2000 PG/ML Thyroid Stimulating Hormone 3.040 uIU/ML 3rd Gen Urine Random Creatinine 180 MG/DL Urine Microalbumin/Creatinine 444 MG/G CRE Ratio White Blood Count 8.6 TH/MM3 Red Blood Count 2.85 MIL/MM3 Hemoglobin 8.6 GM/DL Hematocrit 25.9 % Mean Corpuscular Volume 90.8 FL Mean Corpuscular Hemoglobin 30.3 PG Mean Corpuscular Hemoglobin 33.4 % Concent Red Cell Distribution Width 15.4 % Platelet Count 227 TH/MM3 Mean Platelet Volume 8.6 FL Neutrophils (%) (Auto) 86.9 % Lymphocytes (%) (Auto) 7.6 % Monocytes (%) (Auto) 4.6 % Eosinophils (%) (Auto) 0.2 % Basophils (%) (Auto) 0.7 % Neutrophils # (Auto) 7.5 TH/MM3 Lymphocytes # (Auto) 0.7 TH/MM3 Monocytes # (Auto) 0.4 TH/MM3 Eosinophils # (Auto) 0.0 TH/MM3 Basophils # (Auto) 0.1 TH/MM3 CBC Comment DIFF FINAL Differential Comment Sodium Level 145 MEQ/L Potassium Level 4.3 MEQ/L Chloride Level 120 MEQ/L Carbon Dioxide Level 9.0 MEQ/L Anion Gap 16 MEQ/L Blood Urea Nitrogen 122 MG/DL Creatinine 6.48 MG/DL Estimat Glomerular Filtration 8 ML/MIN Rate Random Glucose 104 MG/DL Calcium Level 8.7 MG/DL Phosphorus Level 6.5 MG/DL Magnesium Level 1.8 MG/DL Iron Level 40 MCG/DL Total Iron Binding Capacity 234 MCG/DL Percent Iron Saturation 17.1 % Albumin 3.4 GM/DL Imaging Last Impressions Carotid Artery Ultrasound 10/06/16 0900 Signed Impressions: Service Date/Time: Thursday, October 06, 2016 07:56 - CONCLUSION: 1. Mild to moderate bilateral calcific plaquing with less than 50%% diameter stenosis by velocity criteria in both internal carotid arteries. 2. Antegrade flow in both vertebral arteries. Binh Jones MD Head Magnetic Resonance Angiography 10/06/16 0000 Signed Impressions: Service Date/Time: Thursday, October 06, 2016 12:07 - CONCLUSION: No acute [place] vascular findings. Ming Landaverde MD Brain MRI 10/06/16 0000 Signed Impressions: Service Date/Time: Thursday, October 06, 2016 12:07 - CONCLUSION: 1. There is some patchy infarct seen in the postcentral gyral region on the right. This would be consistent with acute right MCA infarct. 2. There is old infarct involving the posterior watershed distribution on the right. 3. Advanced microvascular ischemic demyelinative change. Brent Tapia MD Head CT 10/05/16 [id number] Signed Impressions: Service Date/Time: Wednesday, October 05, 2016 23:37 - CONCLUSION: 1. No evidence of acute intracranial pathology. Chronic ischemic changes as above. old right occipital lobe infarct Delta Watt MD Chest X-Ray 10/05/16 4622 Signed Impressions: Service Date/Time: Wednesday, October 05, 2016 23:33 - CONCLUSION: 1. Delta Watt MD Objective Remarks General: NAD, awake and oriented x 2 Chest: CTA bilaterally Cardiac: Regular Abd: +BS, soft ND/NT Ext: left hemiparesis Neuro: Dysarthria, lower left facial droop A/P Problem List: (1) CKD (chronic kidney disease) stage 5, GFR less than 15 ml/min Status: Chronic Plan: - Worsening renal status and uremia. - Pt with stage 5 CKD, she had previously been recommended for HD but the pt had declined - She follows with a Metal Cleaner at [facility]. - Outpt labs reviewed and pts renal function has steadily been in decline, her last BMP in 07/2016 noted Cr 5.27, BUN 80, GFR 8 - Appreciate Nephrology consult - Pt declined HD again - Renal function continues to decline and pts is on ESRD and is becoming uremic. - Dr. Colon had a meeting with the pts spouse and family on 10/08 to discuss the pts clinical status and poor prognosis. They have elected for Hospice consultation and discharge to home with hospice for possibly tomorrow. (2) Acute ischemic right MCA stroke Status: Acute Plan: - Pt was admitted to [facility] on 10/05/16 with complaints of left hand weakness and left facial droop which reportedly was first noted at least 7 hours prior to arrival. - EMS reported her blood pressure on scene was 220/130 with a blood glucose of 125 and a pulse in the 80s. - Initially the patient had no paper coater strength on the left side with marked improvement en route. - Head CT (10/05) --> No evidence of acute intracranial pathology, only chronic ischemic changes and old right occipital lobe infarct. Pt has been evaluated by Neurology. - Carotid US (10/06) --> Mild to moderate bilateral calcific plaquing with less than 50% diameter stenosis by velocity criteria in both internal carotid arteries and antegrade flow in both vertebral arteries. - MRA Brain (10/06) --> No acute COW vascular findings. - Brain MRI (10/06) --> There is some patchy infarct seen in the postcentral gyral region on the right. This would be consistent with acute right MCA infarct. There is old infarct involving the posterior watershed distribution on the right. - Permissive HTN but pt with significantly elevated/uncontrolled HTN and was on Cardene gtt with parameters to keep BP less than 200/100 - Cardene was weaned off after pt was resumed on Labetalol 50mg po BID but BP remains elevated elevated with systolic in the 160-200's and the Labetalol was increased to 100mg BID (10/07) - 2D echo (10/06/16) --> Mild LVH, Estimated EF 55-60%, Grade 1 diastolic dysfunction, trace aortic regurgitation, mildly calcified mitral annulus - Hydralazine and Clonidine PRN - Telemetry - PT/OT/ST - Lipid panel reviewed, Lipitor 40mg po HS - ASA/Plavix - Neuro checks - Supportive care - DVT prophylaxis (3) Uncontrolled hypertension Status: Chronic Plan: - Pt with hx of uncontrolled HTN - See above. (4) Anemia, chronic renal failure Status: Chronic Plan: - In review of outpt records pts Hgb has been in the 8's more recently - No active bleeding. - Pt is on Procrit as an otupt. - Repeat labs in AM Assessment and Plan Patient examined. Assessment and plan formulated with Joann Venegas PA-C. I agree with the above. Problem Qualifiers (1) Anemia, chronic renal failure: Qualified Code: N18.5 - Anemia, chronic renal failure, stage 5 Joann Venegas Oct 08, 2016 10:07 Gerhard Colon DO Oct 11, 2016 06:59
[2016-10-08] MEDS ORDERED: MORPHINE SULFATE 4 MG/ML INJ IV PUSH PRN (10:45)
[2016-10-08] MEDS ORDERED: MORPHINE SULFATE 8 MG/ML INJ IV PUSH PRN (10:45)
[2016-10-08] MEDS ORDERED: IRON SUCROSE INJ 100 MG in SODIUM CHLORIDE 0.9% INJ 100 ML IV SCH (14:00)
[2016-10-08] MEDS: SEVELAMER CARBONATE 800 MG TAB PO SCH (18:10)
[2016-10-08] MEDS: ATORVASTATIN 40 MG TAB PO SCH (21:10)
[2016-10-09 00:23] VITALS: BP 156/72; PULSE 68; RESP 16; TEMP 98.8; O2SAT 96
[2016-10-09] MEDS: CHLORHEXIDINE GLUCONATE 2 % 1 PACK (2 CLOTHS)(taper/protocol) TOP SCH (03:11)
[2016-10-09 04:00] VITALS: BP 164/67; PULSE 98; RESP 18; TEMP 98.8; O2SAT 94
[2016-10-09 08:00] VITALS: BP 222/99; PULSE 113; RESP 20; TEMP 97.8; O2SAT 100
--- NOTE | 2016-10-09 08:10 | HHI.PR ---
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[employer]SE stroke Plan: old rt occipital (4) Uncontrolled hypertension Plan: keep <200/100; further titration after imaging reviewed ok to restart bp meds (5) Chronic kidney disease (CKD) Plan: medical/renal Subjective Subjective Comments No acute events reported No headache No chest pain No dyspnea Active Medications Current Medications Medications (Trade) Dose Ordered Sig/Khanh Route Start Time Stop Time Status Last Admin (NS Flush) 2 ml UNSCH PRN IVF 10/05/16 23:30 (Aspirin Chew) 81 mg DAILY PO 10/06/16 09:00 10/06/16 13:31 (Plavix) 75 mg DAILY PO 10/06/16 09:00 10/07/16 09:00 Heparin Sodium (Porcine) 5000 units 5,000 units BID SQ 10/06/16 09:00 10/08/16 21:10 (Cardene Inj/NS 250 ml Inj) 260 ml @ 0 mls/hr TITRATE IV 10/06/16 13:00 (Pill Splitter) 1 ea UNSCH PRN OTHER 10/06/16 15:00 Miscellaneous Information Patient in critical care unit? Ass... [id number] XX 10/06/16 18:45 (Chlorhexidine 2% Cloth) 3 pack DAILY@04 TOP 10/07/16 04:00 10/11/16 04:01 10/09/16 03:11 (Chlorhexidine 2% Cloth) 3 pack UNSCH PRN TOP 10/06/16 18:45 10/11/16 18:42 (Catapres) 0.2 mg Q6H PRN PO 10/06/16 18:45 10/07/16 09:59 (Apresoline Inj) 10 mg Q6H PRN IV 10/06/16 18:45 10/08/16 10:04 (Lipitor) 40 mg HS PO 10/07/16 21:00 10/08/16 21:10 (Sodium Bicarbonate) 650 mg Q12HR PO 10/07/16 14:30 10/07/16 20:40 (Trandate) 100 mg Q12HR PO 10/07/16 21:00 10/08/16 21:10 (Morphine Inj) 2 mg Q3H PRN IV PUSH 10/08/16 10:45 (Morphine Inj) 5 mg Q3H PRN IV PUSH 10/08/16 10:45 Sevelamer Carbonate 800 mg 800 mg TIDPC PO 10/08/16 18:30 (Venofer Inj/NS Inj) 105 ml @ 105 mls/hr Q24H IV 10/08/16 14:00 10/10/16 14:59 10/08/16 14:31 Allergies Allergies Coded Allergies Hydrochlorothiazide (Unverified Allergy, Severe, Rash, 10/05/16) Lactose (Unverified Adverse Reaction, Severe, GAS, PAIN, 10/05/16) Review of Systems All other ROS: ROS reviewed as documented in chart Exam I&O / VS 10/08/16 10/08/16 10/09/16 15:00 23:00 07:00 Intake Total 5 ml 0 ml 50 ml Output Total 375 ml 500 ml 450 ml Balance -370 ml -500 ml -400 ml Intake Oral 0 ml 50 ml IV Total 5 ml Output Urine Total 375 ml 500 ml 450 ml Stool Total 0 ml # Bowel Movements 0 0 Vital Signs Date Time Temp Pulse Resp B/P Pulse Ox O2 Delivery O2 Flow Rate FiO2 10/09/16 04:00 98.8 98 18 164/67 94 10/09/16 00:23 98.8 68 16 156/72 96 10/08/16 20:00 99.4 102 18 171/76 97 10/08/16 15:50 98.6 106 20 182/86 98 10/08/16 13:31 98.1 101 20 180/80 99 10/08/16 12:00 98.8 87 22 131/82 90 10/08/16 10:00 97 General: Alert and Oriented, No acute distress Eye: EOMI Respiratory: Non-labored respirations Cardiology: Normal rate Neurologic: Alert, Oriented Psychiatric: Cooperative Exam Comments ox 1, lethargic. follows with perseveration, reduced left vff, left lower facial weakness. left hemiplegia Problem Qualifiers (1) Chronic kidney disease (CKD): Qualified Code: N18.9 - Chronic kidney disease (CKD), unspecified stage Puneet Zepeda MD Oct 09, 2016 08:10
[2016-10-09] MEDS: CLOPIDOGREL 75 MG TAB PO SCH (09:00)
[2016-10-09] MEDS: ASPIRIN 81 MG CHEW TAB PO SCH (09:00)
[2016-10-09] MEDS: HEPARIN SODIUM - SQ 10,000 UNITS/ML VIAL SQ SCH (09:00)
[2016-10-09] MEDS: SODIUM BICARBONATE 650 MG TAB PO SCH (09:00)
[2016-10-09] MEDS: LABETALOL HCL 100 MG TAB PO SCH (09:00)
[2016-10-09] MEDS: SEVELAMER CARBONATE 800 MG TAB PO SCH (09:30)
--- NOTE | 2016-10-09 10:07 | HHI.NPPN ---
Subjective Renal Failure: Chronic, Stage V Interval History She is sleeping, lethargic. Good urine output. Renal function is worse. ( Omayra Munoz) Objective Data Data 10/08/16 10/09/16 19:00 07:00 Intake Total 5 ml 50 ml Output Total 375 ml 950 ml Balance -370 ml -900 ml Intake Oral 50 ml IV Total 5 ml Output Urine Total 375 ml 950 ml Stool Total 0 ml # Bowel Movements 0 Vital Signs Date Time Temp Pulse Resp B/P Pulse Ox O2 Delivery O2 Flow Rate FiO2 10/09/16 08:00 97.8 113 20 222/99 100 10/09/16 04:00 98.8 98 18 164/67 94 10/09/16 00:23 98.8 68 16 156/72 96 10/08/16 20:00 99.4 102 18 171/76 97 10/08/16 15:50 98.6 106 20 182/86 98 10/08/16 13:31 98.1 101 20 180/80 99 10/08/16 12:00 98.8 87 22 131/82 90 (Omayra Munoz) -: 10/08/16 0503 10/08/16 0503 Physical Exam General Appearance: Sleeping, Malnourished (Omayra Munoz) Eyes Eye Exam: Pupils Equal (Omayra Munoz) Throat Throat Exam: Oral Mucosa [place] & Moist (Omayra Munoz) Neck Neck Exam: Neck Supple (Omayra Munoz) Pulmonary Resp Exam: Clear Bilaterally, Breath Sounds Equal (Omayra Munoz) Cardiology CV Exam: Regular, Normal Sinus Rhythm (Omayra Munoz) Gastrointestinal/Abdomen GI Exam: Soft, Non-Tender (Omayra Munoz) Musculoskeletal MS Exam: Joints Intact, Normal Tone, Unable to Ambulate (Omayra Munoz) Integumentary Skin Exam: Warm, Dry (Omayra Munoz) Extremeties Extremities Exam: No Edema, Pedal Pulses Palpable (Omayra Munoz) Neurologic Neuro Exam: Obtunded (Omayra Munoz) Assessment/Plan Discussed Condition With: Patient Assessment Summary: Anemia of CKD, Hypertension Problem List: (1) CKD (chronic kidney disease) stage 5, GFR less than 15 ml/min Plan: Patient has reached ESRD, she is uremic, needs renal replacement therapy. She is DNR, we confirmed with family she does not wish to begin dialysis at this time renal function is worse, worsening acidosis, hypernatremia At this time her prognosis is very poor. She should be considered for hospice. start 1/4 NS with 2 amps sodium bicarbonate we will continue to follow (2) Acute ischemic right MCA stroke Plan: neuro following, appreciate recommendations CVA has progressed on Lipitor, ASA, Plavix she is not tolerating oral foods/fluids (3) Hypertensive emergency Plan: neurology following, goal SBP < 200 mmHg she is on PRN hydralazine and clonidine apparently not tolerating oral meds. (4) Anemia, chronic renal failure Plan: iron deficient, Venofer started (Omayra Munoz) Plan patient is terminally ill. Hospice placement. (Sergey Barajas MD) Problem Qualifiers (1) Anemia, chronic renal failure: Qualified Code: N18.5 - Anemia, chronic renal failure, stage 5 Omayra Munoz Oct 09, 2016 10:07 Sergey Barajas MD Oct 09, 2016 14:53
[2016-10-09 10:31] LABS: BICARBONATE 9.2 MEQ/L (21.0-32.0); POTASSIUM 4.5 MEQ/L (3.5-5.1)
[2016-10-09] MEDS ORDERED: BISACODYL 10 MG SUPP RECTAL ONE (11:15)
[2016-10-09] MEDS ORDERED: LORA-474 PO (11:22)
[2016-10-09] MEDS ORDERED: MSIR15 PO (11:22)
[2016-10-09] MEDS ORDERED: DULC10SU3 RECTAL (11:22)
--- NOTE | 2016-10-09 11:31 | HHI.DS ---
Discharge Summary Admission Date Oct 06, 2016 at 00:33 Discharge Date: Oct 09, 2016 Admitting Diagnosis CVA, Acute on CRI, Hypertension (1) CKD (chronic kidney disease) stage 5, GFR less than 15 ml/min Diagnosis: Secondary (2) Acute ischemic right MCA stroke Diagnosis: Principal (3) Uncontrolled hypertension Diagnosis: Secondary (4) Anemia, chronic renal failure Diagnosis: Secondary Consultants Dr. Puneet Zepeda - Neurology Dr. Sergey Barajas - Nephrology Brief History Mrs. Gallagher is a pleasant 75 y/o AAF with uncontrolled HTN, CKD, stage 5, anemia of chronic disease on Procrit injections, and previous right MCA stroke in 02/2016. Pt arrived to the ED by EMS on 10/05/16 with complaints of left hand weakness and left facial droop which reportedly was first noted at least 7 hours prior to arrival. EMS reported her blood pressure on scene was 220/130 with a blood glucose of 125 and a pulse in the 80s. Initially the patient had no copying machine repairer strength on the left side with marked improvement en route. Head CT did not revealed any evidence of acute intracranial pathology, only chronic ischemic changes and old right occipital lobe infarct. Pt has been evaluated by Neurology. MRI/MRA are pending. Carotid US noted mild to moderate bilateral calcific plaquing with less than 50% diameter stenosis by velocity criteria in both internal carotid arteries and antegrade flow in both vertebral arteries. CBC/BMP: 10/08/16 0503 10/09/16 0940 Significant Findings Laboratory Tests Test 10/06/16 10/08/16 10/08/16 10/09/16 21:15 05:00 05:03 09:40 Erythrocyte Sedimentation Rate 41 mm/hr (0-30) Hemoglobin A1c 6.2 % (4.3-6.0) Cholesterol Level 215 MG/DL (120-200) LDL Cholesterol 137 MG/DL (0-99) Vitamin B12 Level GREATER THAN 2000 PG/ML (193-986) Urine Microalbumin/Creatinine 444 MG/G CRE Ratio (0-30) Red Blood Count 2.85 MIL/MM3 (4.00-5.30) Hemoglobin 8.6 GM/DL (11.6-15.3) Hematocrit 25.9 % (35.0-46.0) Neutrophils (%) (Auto) 86.9 % (16.0-70.0) Lymphocytes (%) (Auto) 7.6 % (9.0-44.0) Lymphocytes # (Auto) 0.7 TH/MM3 (1.0-4.8) Chloride Level 120 MEQ/L 124 MEQ/L (98-107) (98-107) Carbon Dioxide Level 9.0 MEQ/L 9.2 MEQ/L (21.0-32.0) (21.0-32.0) Anion Gap 16 MEQ/L (5-15) 17 MEQ/L (5-15) Blood Urea Nitrogen 122 MG/DL 137 MG/DL (7-18) (7-18) Creatinine 6.48 MG/DL 7.56 MG/DL (0.50-1.00) (0.50-1.00) Estimat Glomerular Filtration 8 ML/MIN (>89) 6 ML/MIN (>89) Rate Phosphorus Level 6.5 MG/DL 6.8 MG/DL (2.5-4.9) (2.5-4.9) Iron Level 40 MCG/DL (50-170) Total Iron Binding Capacity 234 MCG/DL (250-450) Percent Iron Saturation 17.1 % (20-50) Sodium Level 150 MEQ/L (136-145) Albumin 3.3 GM/DL (3.4-5.0) Imaging Last Impressions Carotid Artery Ultrasound 10/06/16 0900 Signed Impressions: Service Date/Time: Thursday, October 06, 2016 07:56 - CONCLUSION: 1. Mild to moderate bilateral calcific plaquing with less than 50%% diameter stenosis by velocity criteria in both internal carotid arteries. 2. Antegrade flow in both vertebral arteries. Binh Jones MD Head Magnetic Resonance Angiography 10/06/16 0000 Signed Impressions: Service Date/Time: Thursday, October 06, 2016 12:07 - CONCLUSION: No acute [place] vascular findings. Ming Landaverde MD Brain MRI 10/06/16 0000 Signed Impressions: Service Date/Time: Thursday, October 06, 2016 12:07 - CONCLUSION: 1. There is some patchy infarct seen in the postcentral gyral region on the right. This would be consistent with acute right MCA infarct. 2. There is old infarct involving the posterior watershed distribution on the right. 3. Advanced microvascular ischemic demyelinative change. Brent Tapia MD Head CT 10/05/167 Signed Impressions: Service Date/Time: Wednesday, October 05, 2016 23:37 - CONCLUSION: 1. No evidence of acute intracranial pathology. Chronic ischemic changes as above. old right occipital lobe infarct Delta Watt MD Chest X-Ray 10/05/166 Signed Impressions: Service Date/Time: Wednesday, October 05, 2016 23:33 - CONCLUSION: 1. Delta Watt MD PE at Discharge General: NAD, awake and oriented x 2 Chest: CTA bilaterally Cardiac: Regular Abd: +BS, soft ND/NT Ext: left hemiparesis Neuro: Dysarthria, lower left facial droop Hospital Course Pt was admitted to [facility] on 10/05/16 with complaints of left hand weakness and left facial droop which reportedly was first noted at least 7 hours prior to arrival. EMS reported her blood pressure on scene was 220/130 with a blood glucose of 125 and a pulse in the 80s. Initially the patient had no copying machine repairer strength on the left side with marked improvement en route. Head CT (10/05) --> No evidence of acute intracranial pathology, only chronic ischemic changes and old right occipital lobe infarct. Pt was evaluated by Neurology. Carotid US () --> Mild to moderate bilateral calcific plaquing with less than 50% diameter stenosis by velocity criteria in both internal carotid arteries and antegrade flow in both vertebral arteries. MRA Brain (10/06) --> No acute COW vascular findings. Brain MRI (10/06) --> There is some patchy infarct seen in the postcentral gyral region on the right. This would be consistent with acute right MCA infarct. There is old infarct involving the posterior watershed distribution on the right. Pt was allowed permissive HTN but pt with significantly elevated/uncontrolled HTN at admission she was started on Cardene gtt with parameters to keep BP less than 200/100. Cardene was weaned off after pt was resumed on Labetalol 50mg po BID but BP remains elevated elevated with systolic in the 160-200's and the Labetalol was increased to 100mg BID (10/07). 2D echo (10/06/16) --> Mild LVH, Estimated EF 55-60%, Grade 1 diastolic dysfunction, trace aortic regurgitation, mildly calcified mitral annulus. She has persistent left sided weakness and clinically seemed to deteriorate as the stroke evolved during admission. Pt has stage 5 CKD, she had previously been recommended for HD but the pt had declined. Outpt labs reviewed and pts renal function has steadily been in decline, her last BMP in 07/2016 noted Cr 5.27, BUN 80, GFR 8. Nephrology was consulted and pt declined HD again. Her renal function continued to decline during this admission and started becoming uremic. Dr. Colon had a meeting with the pts spouse and family on 10/08 to discuss the pts clinical status and poor prognosis. The report that the pt would never want dialysis and they have elected for Hospice care and to go home with hospice. Pt Condition on Discharge: Deteriorating Discharge Disposition: Hospice/ Home Discharge Instructions DIET: Follow Instructions for: As Tolerated, No Restrictions Speech Therapy-Diet Recommends: Mechanical Soft Activities you can perform: Regular-No Restrictions New Medications: Bisacodyl Supp (Dulcolax Supp) 10 Mg Supp 10 MG RECTAL DAILY PRN CONSTIPATION #12 Ref 0 SUPP Lorazepam (Ativan) 1 Mg Tab 1 MG PO Q4H PRN for severe anxiety or dyspnea #30 Ref 0 TAB Morphine IR (Morphine IR) 15 Mg Tab 15 MG PO Q4H PRN PAIN #20 Ref 0 TAB Discontinued Medications: Allopurinol (Allopurinol) 100 Mg Tab 100 MG PO DAILY Gout #30 Ref 0 TAB Ascorbic Acid (Vitamin C) 500 Mg Cap 500 MG PO Nutritional Supplement Ref 0 CAP Aspirin (Aspirin) 81 Mg Tabdr 81 MG PO DAILY TAB Cholecalciferol (Vitamin D-3) 400 Unit Tab 400 Cyanocobalamin (B-12) 1,000 Mcg Subl 1000 MCG SL DAILY Nutritional Supplement Ref 0 TAB.SL Epoetin Inj (Procrit Inj) 10,000 Unit/Ml Inj 59421 UNITS SQ 3XWEEK Anemia #12 Ref 0 VIAL Furosemide (Furosemide) 40 Mg Tab 40 MG PO DAILY #30 Ref 0 TAB Labetalol (Labetalol) 100 Mg Tab 100 MG PO DAILY Blood Pressure Management Ref 0 TAB Losartan (Cozaar) 50 Mg Tab 50 MG PO DAILY Blood Pressure Management #30 Ref 0 TAB Additional Information Patient examined. Assessment and plan formulated with Joann Venegas PA-C. I agree with the above. Joann Venegas Oct 09, 2016 11:31 Gerhard Colon DO Oct 11, 2016 07:00
[2016-10-09] MEDS ORDERED: SODIUM CHLORIDE 23.4% INJ 38.5 MEQ, SODIUM BICARBONATE 8.4% INJ 100 MEQ in WATER STERIL... IV SCH (11:45)
[2016-10-09 12:00] VITALS: BP 206/91; PULSE 95; RESP 20; TEMP 96.3; O2SAT 99
== END 2016-10-09 12:31 | disposition hospice, home (50) | DRG 64 ==
LOC: NEPE 23:04 → NEDA 10-06 00:33 → NEDH 10-06 11:50 → HIME 10-06 15:50 → HOCB 10-08 13:07
PROVIDERS: ADMIT Hospitalist; ATTEND Hospitalist
DX: I63.511 Cerebral infarction due to unspecified occlusion or stenosis of right middle cerebral artery (principal); G93.49 Other encephalopathy; N17.9 Acute kidney failure, unspecified; I12.0 Hypertensive chronic kidney disease with stage 5 chronic kidney disease or end stage renal disease; N18.5 Chronic kidney disease, stage 5; G81.94 Hemiplegia, unspecified affecting left nondominant side; I27.2 Other secondary pulmonary hypertension; I16.1 Hypertensive emergency; D63.1 Anemia in chronic kidney disease; E61.1 Iron deficiency; R29.810 Facial weakness; R47.1 Dysarthria and anarthria; Z53.29 Procedure and treatment not carried out because of patient's decision for other reasons; Z86.73 Personal history of transient ischemic attack (TIA), and cerebral infarction without residual deficits; I25.2 Old myocardial infarction; Z51.5 Encounter for palliative care; Z66 Do not resuscitate; Z79.82 Long term (current) use of aspirin; I70.0 Atherosclerosis of aorta; M19.90 Unspecified osteoarthritis, unspecified site; E78.5 Hyperlipidemia, unspecified
CPT/HCPCS: 70450; 70544; 70551; 71010; 76937; 80048; 80061; 80069; 82043; 82550; 82552; 82607; 83036; 83540; 83550; 83735; 84443; 84484; 85025; 85610; 85652; 85730; 87641; 93005; 93306; 93880; 96365; J0360; J1644; J1756; J2270; J7050